=== PATIENT | male | born 1950 | race Caucasian/White ===

== ENCOUNTER → 2018-06-16 08:26 | Day surgery (SDC) | payer BC ==
--- NOTE | 2018-06-03 14:50 | HP ---
PREOPERATIVE HISTORY AND PHYSICAL: DATE OF ADMISSION/SURGERY: 06/16/18 DATE OF OFFICE VISIT: 06/03/18 ATTENDING PHYSICIAN: Dr. Manuel Gallo* (dictated by LEON Hartmann). PROCEDURE: Left shoulder arthroscopy rotator cuff repair, decompression, debridement, and subpectoral biceps tenodesis. CHIEF COMPLAINT: Left shoulder pain. HISTORY OF PRESENT ILLNESS: Miguel Ángel is a 67-year-old male who presents to clinic for left shoulder pain due to rotator cuff tear and biceps tendinitis. He has failed conservative measures; therefore, agreed to undergo a left shoulder arthroscopy rotator cuff repair, decompression, debridement and subpectoral biceps tenodesis with Dr. Gallo on 06/16/18. 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 PAST SURGICAL HISTORY: Hernia repair, colorectal surgery, port placement, endoscopy. The patient denies prior complication with anesthesia. MEDICATIONS: 1. Lovastatin 10 mg 1 by mouth at bedtime. 2. Duloxetine 20 mg 2 capsule every day. 3. Citrucel 1 teaspoon in 8 ounces of water twice a day as needed. 4. Xarelto 20 mg 1 by mouth every day. 5. Altace 2.5 mg 1 cap every day. 6. Meclizine 25 mg 1 every 8 hours for dizziness. 7. Zofran 4 mg 1 tab every 6 hours for nausea. 8. Hydrocodone/acetaminophen 5/325 mg 1 hour every 4 to 6 hours as needed, this was for postop, he is no longer taking it. 9. Omeprazole 20 mg 1 by mouth daily. 10. Multivitamin 1 by mouth daily. 11. Flomax 0.4 mg 1 daily. 12. Gabapentin 300 mg 1 cap in the morning and 2 at bedtime. ALLERGIES: PENICILLIN. FAMILY HISTORY: Unknown because he is adopted. SOCIAL HISTORY: He is a [employer]. He quit smoking 30 or 35 years ago. He reports occasional alcohol consumption. He is right hand dominant. REVIEW OF SYSTEMS: A 14-point review of systems was reviewed with the patient. Positive for current complaints otherwise negative. Positive for DVT and PE. He has easy bleeding due to being on Xarelto. He denies fever, chills, chest pain or shortness of breath. PHYSICAL EXAMINATION GENERAL: A 67-year-old well-developed, well-nourished male in no acute distress. VITAL SIGNS: Height 66, weight 213, pulse 80, blood pressure 116/82, temperature 97.6, BMI 34.5. HEENT: Normocephalic, atraumatic. PERRLA. Throat clear. NECK: Supple. PULMONARY: Lungs clear to auscultation bilaterally. No wheezing, rhonchi, or rales. CARDIO: Regular rate and rhythm. S1 and S2. No murmurs, gallops, or rubs. No edema. ABDOMEN: Positive bowel sounds, soft, nontender. MUSCULOSKELETAL: Left upper extremity: Skin is intact. No warmth or erythema. No abrasions or open wounds. Tenderness over the bicipital groove and subacromial space. He has pain with range of motion. Forward flexion and abduction 150; external rotation 65. +4/5 strength to rotator cuff testing was obtained. Positive impingement, Speed's, Albert-Zeke, and Meldrim's. +2 radial pulses. Sensation is intact to light touch distally. NEURO: Alert and oriented x3. Cranial nerves grossly intact. DIAGNOSTIC STUDIES: MRI revealed no full thickness tear but a partial tear of the supraspinatus tendon, degeneration of superior labrum as well as biceps tendon and fluid in the bicipital groove. IMPRESSION: Left shoulder rotator cuff tear and biceps tendinitis. PLAN: The patient is scheduled to undergo a left shoulder arthroscopy, rotator cuff repair, decompression, and debridement of subpectoral biceps tenodesis with Dr. Gallo on 06/16/18 pending PCP clearance on 06/08/18. His Xarelto will be held preoperatively based on PCP recommendation. Percocet will be used for postop pain management. LEON HARTMANN [id number]/[facility] #: [id number] MTDD
[~2018-06-16 08:26] MED LIST: Buffered Lidocaine 1% SYRIN* 1 ML/SYRINGE INTRADERM ONE; Dexamethasone IV* 4 MG/ML 1 ML (4 MG) ONE; EPHEDrine (Pressors)* 50 MG/ML VIAL ONE; EPINEPHrine SYR 0.1MG/ML* SYRINGE ONE; Lactated Ringers 1000 ML Bag* 1,000 ML IV SCH; Lidocaine 2% PF * 5 ML VIAL ONE; Midazolam* 1 MG/ML 2 ML VIAL (2 MG) ONE; Phenylephrine 10 MG/ML VIAL* 1 ML VIAL ONE; Propofol* 10 MG/ML 20 ML BTL ONE; ROPIVACAINE 5 MG/ML 30 ML BTL (0.5%) ONE; Rocuronium* 10 MG/ML VIAL ONE; Ropivacaine* 2 MG/ML 20 ML VIAL (0.2%) ONE; VASOPRESSIN 20 UNITS/ML 1 ML VIAL ONE; ceFAZolin 2 GM PREMIX in ORs 2 GM/50 ML BAG IVPB ONE; fentaNYL* 50 MCG/ML 2 ML VIAL (100 MCG VIAL) ONE
[2018-06-16 15:29] VITALS: BP 128/70
--- NOTE | 2018-06-16 17:49 | OP ---
CC: PCP* OPERATIVE REPORT: DATE OF OPERATION: 06/16/18 - [facility] DATE OF : 54. SURGEON: Manuel Gallo MD. ASSISTANTS: 1. LEON Cabrales 2. ADONIS Arevalo student. ANESTHESIOLOGIST: Dr. Issa. ANESTHESIA: General interscalene block. PRE-OP DIAGNOSIS: Left shoulder, high-grade bursal side tear of the rotator cuff with biceps tendinitis. POST-OP DIAGNOSIS: Left shoulder, high-grade bursal side tear of the rotator cuff with biceps tendinitis. OPERATIVE PROCEDURE: Left shoulder arthroscopy with: 1. Extensive glenohumeral debridement. 2. Subacromial decompression with acromioplasty. 3. Rotator cuff repair with Regeneten patch. 4. Open biceps tenodesis. IMPLANTS USED: One Regeneten patch size medium and one Q-Fix 2.8 mm. COMPLICATIONS: None. ESTIMATED BLOOD LOSS: Minimal. INDICATIONS: Miguel Ángel Epperson is a 67-year-old male who had a work-related injury. He was diagnosed with a high-grade bursal side tear. He has failed conservative management and elected to proceed with surgical treatment. He underwent preoperative medical risk optimization per his complicated medical history and was cleared for surgery. The risks and benefits of surgery were discussed at length including, but not limited to bleeding; infection; damage to nerves, vessels, surrounding structures; wound nonhealing; persistent pain; need for further surgery; scarring; stiffness; incomplete relief of symptoms; risks of anesthesia. DESCRIPTION OF PROCEDURE: The patient was greeted in the preoperative area by the attending surgeon. Correct extremity was marked and consent was confirmed. The patient underwent an interscalene nerve block after which he was brought back to the operating suite, and placed in the supine position on the operating table. He then underwent general anesthesia and endotracheal intubation. After he was properly positioned in the right lateral decubitus position, all bony prominences were padded and secured to the pegboard, an axillary roll was placed, the left arm was draped unsterile with 10 pounds of traction. The left shoulder was prepped and draped in the usual sterile fashion, beginning with chlorhexidine soap, scrub, and alcohol wipe and final prep of ChloraPrep. After appropriate surgical pause indicating the side, site, procedure, and administration of antibiotics, a standard posterolateral portal was made sharply with an 11 blade. The scope was introduced into the joint and was examined. There was mild glenohumeral chondral changes grade 1, small areas of grade 2. The anterior, posterior, and superior labrum had osteal fraying. The biceps was obviously subluxed with synovitis. The anterior portal was made in an outside-in fashion. Shaver was used to debride back the anterior, posterior , and superior labrum doing a mild chondroplasty. Biceps was then tenotomized for later tenodesis as there was high-grade bursal side tear of the undersurface of the rotator cuff. The inferior recess was intact. Once the debridement was completed, attention was directed to the subacromial space. With the scope positioned in the subacromial space, a lateral portal was made in outside-in fashion. Shaver was used to debride back the abundant significant bursa that was present. Once this was done, the undersurface of the acromion was skeletonized using electrocautery device. A 4-0 oval idalia was used for acromioplasty. Once this was complete, attention was directed to the cuff. Once all were derided and fluid was removed, the attention was directed to the cuff. The bursal side of the cuff was found to be intact. Decision was made to treat this with a Regeneten patch. A size medium Regeneten patch was then brought to the field and through a separate stab incision, the cannula was placed to facilitate passage of the medial tendon zheng. These were then secured medially along the affected areas of the supraspinatus tendon. Once this was secured, the lateral aspect was then secured with PEEK zheng to the bone. The graft was secured. The final images were obtained. The wounds were copiously irrigated. Attention was directed to the anterior aspect of the shoulder. The bed was airplaned to the left side. The anterior aspect of the shoulder was prepped again using ChloraPrep. A 15-blade was used to make incision in line with the biceps tendon. The soft tissues were carefully dissected to expose the fascia. Once this was identified, the pec was elevated and the remainder of the dissection was done bluntly. The groove was then prepared in the usual fashion with electrocautery device, red ball rasp, and osteotome. Once the biceps was brought through the wound, the Q-Fix guide was then drilled and placed unicortically with excellent purchase. The sutures were then passed through biceps in a Patrick-Fito type configuration and tied down. The excess stump was excised. Biceps was secured. The wounds were copiously irrigated with sterile saline. The anterior wound was closed in layers with 3-0 Monocryl and portals were closed with 3-0 nylon. Sterile dressings were applied. A Cryo /Cuff and UltraSling were applied. He was awoken from anesthesia and transferred to PACU in stable condition. POSTOPERATIVE PLAN: He will be nonweightbearing. He will be discharged on pain medications. DVT prophylaxis was considered. He will be on Xarelto for other reasons, which would cover his DVT prophylaxis. I will see her back in 10 to 14 days. He will start therapy within a week. He will also be discharged on the antibiotics. We will see the patient back in 10 to 14 days. [id number]/[facility] #: [id number] MTDD
== END | disposition home or self-care (01) ==
LOC: OR 08:26
PROVIDERS: ATTEND Orthopaedic Surgery
DX: S46.012A Strain of muscle(s) and tendon(s) of the rotator cuff of left shoulder, initial encounter (principal); M75.22 Bicipital tendinitis, left shoulder; G89.18 Other acute postprocedural pain; I10 Essential (primary) hypertension; Z86.718 Personal history of other venous thrombosis and embolism; Z79.01 Long term (current) use of anticoagulants; Z86.711 Personal history of pulmonary embolism; E11.9 Type 2 diabetes mellitus without complications; E78.5 Hyperlipidemia, unspecified; K21.9 Gastro-esophageal reflux disease without esophagitis; Z85.038 Personal history of other malignant neoplasm of large intestine; X58.XXXA Exposure to other specified factors, initial encounter; Y92.9 Unspecified place or not applicable; Y99.0 Civilian activity done for income or pay; Z87.891 Personal history of nicotine dependence; G62.0 Drug-induced polyneuropathy
CPT/HCPCS: C1713; C1776; J0171; J0690; J1100; J2250; J2704; J2795; J3010

== ENCOUNTER → 2019-01-12 12:16 | Day surgery (SDC) | payer OTHER ==
[~2019-01-12 12:16] MED LIST changes: +Acetaminophen IV 1GM/100ML * 100 ML ONE; +Dexmedetomidine* 200 MCG/2 ML 2 ML VIAL ONE; +DiMENhydriNATE IV* 50 MG/ML VIAL IV PUSH PRN; +Ketorolac INJ* 30 MG/ML 1 ML VIAL ONE; +Metoclopramide IV* 5 MG/ML 2 ML VIAL ONE; +Naloxone* 0.4 MG/ML 1 ML VIAL IV PRN; +Ondansetron INJ* 2 MG/ML VIAL ONE; -Phenylephrine 10 MG/ML VIAL* 1 ML VIAL ONE; -Ropivacaine* 2 MG/ML 20 ML VIAL (0.2%) ONE; +Sugammadex * 200 MG/2 ML VIAL IV PUSH ONE; -VASOPRESSIN 20 UNITS/ML 1 ML VIAL ONE; -ceFAZolin 2 GM PREMIX in ORs 2 GM/50 ML BAG IVPB ONE; +ceFAZolin 2 GM PREMIX in ORs 2 GM/50 ML BAG ONE; +fentaNYL* 50 MCG/ML 2 ML VIAL (100 MCG VIAL) IV PRN; +oxyCODONE TAB* 5 MG TAB PO PRN
[2019-01-12 20:01] VITALS: BP 117/60
--- NOTE | 2019-01-14 14:33 | OP ---
CC: PCP * DATE OF OPERATION: 01/12/19 - [facility] DATE OF : 54 ATTENDING SURGEON: Manuel Gallo MD. SECRETARIAL TEACHER: Juju Pierce PA-C. An warehouse administrative assistant was needed for the entirety of the case to help with positioning and retraction and was utilized throughout all portions of the case. ANESTHESIOLOGIST: Dr. Issa. ANESTHESIA: General interscalene block. PRE-OP DIAGNOSES: Left shoulder full-thickness tear of the rotator cuff and acromioclavicular joint arthritis. POST-OP DIAGNOSES: Left shoulder full-thickness tear of the rotator cuff and acromioclavicular joint arthritis. OPERATIVE PROCEDURE: Left shoulder revision arthroscopy with: 1. Extensive glenohumeral debridement. 2. Revision subacromial decompression. 3. Arthroscopic distal clavicle excision. 4. Rotator cuff repair in a double-row fashion augmented with Regeneten patch. 5. Removal of hardware. COMPLICATIONS: None. ESTIMATED BLOOD LOSS: Minimal. IMPLANTS: One MULTIFIX, one Healicoil, one medium-sized Regeneten patch. DISPOSITION: Stable. INDICATIONS: Miguel Ángel Epperson is a 68-year-old male who had a previous surgery for a partial-thickness tear. We did a Regeneten patch. He seemed to be doing okay, but he started to present with some AC joint symptoms. We did inject it, but he started to have more laterally based symptoms. We did an MRI, which demonstrated that he had actually torn his rotator cuff, which was surprising. After extensive discussion of the risks and benefits, operative versus nonoperative treatment, he elected to proceed with surgical treatment. The risks included, but were not limited to bleeding, infection, damage to nerves; vessels; surrounding structures, wound nonhealing, persistent pain, need for further surgery, scarring, stiffness, incomplete relief of symptoms, and risks of anesthesia. The patient underwent preoperative medical risk optimization prior to surgery. DESCRIPTION OF PROCEDURE: The patient was greeted in the preoperative area by the attending surgeon. Correct extremity was marked and consent was confirmed. The patient underwent an interscalene nerve block by the anesthesiologist, after which he was brought back to the operating suite. He was placed in the supine position on the operating room table. He then underwent general anesthesia and endotracheal intubation, after which he was placed in the right lateral decubitus position with an axillary roll. All bony prominences were padded and secured to the pegboard. The left shoulder was draped unsterile with 10 pounds of traction. The left shoulder was then prepped and draped in the usual sterile fashion, beginning with chlorhexidine soap, scrub, and alcohol wipe and final prep of ChloraPrep. After appropriate surgical pause indicating the side, site, procedure, and administration of antibiotics, the standard posterolateral portal was made sharply with an 11 blade. The scope was introduced into the joint. There was abundant scar tissue that I had to get through. The anterior portal was made in an outside- in fashion. There was a mild amount of chondrosis in the glenohumeral joint which was debrided back. The anterior, posterior and superior labrum was debrided back. The undersurface of the rotator cuff had evidence of synovitis and tearing. The subscapularis was intact. The inferior recess was intact. Attention was directed to the subacromial space. With the scope positioned in the subacromial space, a lateral portal was made in an outside-in fashion. Shaver was used to debride back the abundant bursa that was present. The previously placed patch had been reabsorbed to a good extent, but there were the PEEK zheng that were identified. These needed to be removed in order to perform the repair, which he had a small full-thickness tear. Both zheng were removed in their entirety. The undersurface of the acromion was then skeletonized again and a small revision acromioplasty was done to access the AC joint. Once the AC joint was identified, attention was directed to distal clavicle excision. With the bur in the anterior portal, the distal 8 mm of the clavicle were then excised using a 4-0 oval bur. Once this was excised and the clavicle was checked for motion with no evidence of impingement, attention was directed to the rotator cuff. The cuff was examined again. There was a small full-thickness tear. There were some areas which looked like it was a partial tear. This was completed with the 11- blade. The edges of the tendon were debrided back. The electrocautery device was used to skeletonize the greater tuberosity. The 4-0 oval bur was then used to gently decorticate the greater tuberosity. One 4.75 Healicoil was placed medially about the footprint and then a small microfracture was done. The anchor was placed with excellent purchase. The tape and Ortho Braid sutures were then passed in a horizontal mattress configuration and then tied down using arthroscopic knot-tying technique. The remaining sutures were then passed through a MULTIFIX anchor for lateral row fixation. Because the patient is young and this is a revision surgery, we decided to proceed with Regeneten patch as well. The Regeneten patch of a size medium was placed under arthroscopic and direct visualization and it was then secured medially as well as laterally. Final images were obtained. The wounds were copiously irrigated with sterile saline. The portals were closed with 3-0 nylon. Sterile dressings were applied. A Cryo/Cuff and UltraSling were applied. He was awoken from anesthesia and transferred to PACU in stable condition. POSTOPERATIVE PLAN: He will be nonweightbearing. He will be in the sling for 6 weeks. He will be discharged on pain medications and antibiotics due to revision surgery. He will restart his Xarelto on postop day #1. I will see the patient back in 10 to 14 days. [id number]/[facility] #: [id number] [facility]
== END | disposition home or self-care (01) ==
LOC: OR 12:16
PROVIDERS: ATTEND Orthopaedic Surgery
DX: S46.012D Strain of muscle(s) and tendon(s) of the rotator cuff of left shoulder, subsequent encounter (principal); M19.012 Primary osteoarthritis, left shoulder; I10 Essential (primary) hypertension; E11.9 Type 2 diabetes mellitus without complications; Z86.718 Personal history of other venous thrombosis and embolism; Z79.01 Long term (current) use of anticoagulants; Z86.711 Personal history of pulmonary embolism; Z87.891 Personal history of nicotine dependence; X58.XXXD Exposure to other specified factors, subsequent encounter; Y92.9 Unspecified place or not applicable; G89.18 Other acute postprocedural pain; I89.0 Lymphedema, not elsewhere classified
CPT/HCPCS: C1713; J0171; J0690; J1100; J1885; J2250; J2405; J2704; J2765; J2795; J3010

== ENCOUNTER 2019-04-01 14:22 | Inpatient (IN) | payer BC, OTHER ==
--- OUTSIDE RECORDS SUMMARY | 2019-04-01 15:19 | XMS REPORT | Continuity of Care Document ---
:1950 External Reference #:[id number] Author Name Gordy Wills M.D. (transmitted by agent of provider Albina Fernandez ) Address [address] [facility], [place] [address] Care Team Providers Name Role Phone Yusuf Elizalde MD - Care Team Information Appliance Service Representative [phone] Otolaryngology Paola Orozco NP - Diabetes Care Team Information Appliance Service Representative [phone] Educator Benja Mcgraw III, MD - Internal Care Team Information Appliance Service Representative Medicine Guero Castro DPM - Foot Surgery Care Team Information Appliance Service Representative Gordy Wills M.D. - Neurology Care Team Information Appliance Service Representative Problems Active Problems Provider Date Adenocarcinoma of large intestine Jakob Carter M.D.,FACP Onset: 2015 Peripheral vertigo Jakob Carter M.D.,FACP Onset: 08/12/2011 Type 2 diabetes mellitus without Jakob Carter M.D.,FACP Onset: 2014 complication Cholelithiasis without obstruction Jakob Carter M.D.,FACP Onset: 2014 Kidney stone Jakob Carter M.D.,FACP Onset: 10/13/2014 H/O: pulmonary embolus Jakob Carter M.D.,FACP Onset: 12/19/2015 Strain of muscle(s) and tendon(s) of Manuel Gallo MD Onset: 07/24/2017 the rotator cuff of left shoulder, subsequent encounter Cervical spondylosis without Juan Jose Haro M.D. Onset: 12/14/2017 myelopathy Olecranon bursitis Manuel Gallo MD Onset: 02/23/2018 Localized, secondary osteoarthritis of Manuel Gallo MD Onset: 10/19/2018 the shoulder region Loose body in elbow joint Manuel Gallo MD Onset: 10/19/2018 Pure hypercholesterolemia Benja Mcgraw M.D. Onset: 11/15/2018 Benign prostatic hypertrophy without Benja Mcgraw M.D. Onset: 11/15/2018 outflow obstruction Strain of rotator cuff capsule Benja Mcgraw M.D. Onset: 12/22/2018 Localized, primary osteoarthritis of Manuel Gallo MD Onset: 02/22/2019 the shoulder region Abnormal involuntary movement Gordy Wills M.D. Onset: 03/29/2019 Malaise and fatigue Gordy Wills M.D. Onset: 03/29/2019 Social History Type Date Description Comments Sex Unknown Tobacco Use Start: Unknown Former Cigarette Smoker Quit 1979 End: Unknown Smoking Status Reviewed: 03/29/19 Former Cigarette Smoker Quit 1979 ETOH Use Occasionally consumes occasional beer with alcohol dinner Tobacco Use Start: Unknown Patient is a former Quit 1979; max End: Unknown smoker 1-2ppd, began age 18 Recreational Drug Use Denies Drug Use Exercise Type/Frequency Exercises rarely due to shoulder surgery, not able to walk as much Allergies, Adverse Reactions, Alerts Active Allergies Reaction Severity Comments Date Penicillins Nausea and Vomiting, Cramps 08/12/2011 Medications Active Medications SIG Qnty Indications Ordering Date Provider Zolpidem Tartrate 1-2 at bedtime as 10tabs Benja Jensen 01/25/2019 5mg needed Gregorio Mcgraw Tablets Lovastatin Take 1 Tablet AT 90tabs E11.9 Benja Jensen 05/13/2017 10mg Bedtime Gregorio Mcgraw Tablets Duloxetine HCL take 2 capsules 180caps Benja Jensen 12/22/2016 20mg by mouth every Gregorio Mcgraw Caps DR Prashant land. Citrucel 1 Tbsp in 8 oz. 454gm Jakob Naylor 04/17/2016 Powder water by mouth Gregorio Carter,FACP twice a day as needed Xarelto take 1 tablet by 90tabs Benja Jensen 04/17/2016 20mg Tablets mouth every day. Gregorio Mcgraw Altace take 1 capsule by 90caps E11.9 Benja Jensen 12/13/2014 2.5mg Capsules mouth every day Gregorio Mcgraw Meclizine HCL 1 po q8hr prn for 30tabs Jakob Naylor 08/12/2011 25mg dizziness or Gregorio Carter,FACP Tablets motion sickness Ondansetron Odt dissolve 1 tablet 20tabs Jakob Naylor 08/12/2011 4mg q6-8hr prn nausea Gregorio Carter,FACP Tablets Dispers Onetouch Delica test twice a day 150units Jakob Naylor Lancets Fine 30G Gregorio Carter,FACP 30G Misc Onetouch Ultra Blue test twice a day 150units Jakob Naylor Gregorio Carter,FACP Strips Multivitamin Adult 1 by mouth every Unknown day Tablets Flomax 1 by mouth every Unknown 0.4mg Capsules day History Medications Oxycodone-Acetaminophen 1 tabs by mouth 30tabs Manuel Gallo, 01/12/2019 - 5-325mg Tablets every 4-6 hours as 02/21/2019 needed for post op pain Cephalexin take 1 by mouth 12caps Manuel Gallo 01/12/2019 - 500mg Capsules four times a day x 01/22/2019 3 days post op Suprep Bowel Prep Kit take according to 354ml Daniel Riojas 12/01/2018 - the instructions MD Michael 01/09/2019 17.5-3.13-1.6GM/177ML you received, the Solution afternoon before and morning of your procedure. Medications Administered in Office Medication SIG Qnty Indications Ordering Provider Date Triamcinolone (Kenalog) Manuel Gallo MD 10/19/2018 Injection Records Fee Manuel Gallo MD 10/08/2018 Injection Triamcinolone (Kenalog) Manuel Gallo MD 07/24/2017 Injection Immunizations CPT Code Status Date Vaccine Lot # [id number] Given 12/14/2017 Tdap - Tetanus/Diptheria/Acellular Pertussis [id number] Given 11/13/2017 Pneumococcal Conjugate Vaccine 13 Valent For [id number] Intramuscular Use [id number] Given 06/13/2015 Zoster (Zostavax) [id number] Given 12/13/2014 Pneumonia Vaccine [id number] Refused 12/19/2015 Influ Virus Vaccine, Quadrivalent, Split Virus, Im Fluzone not PF Vital Signs Date Vital Result Comment 03/29/2019 11:10am Height 66 inches 5'6" Weight 217.00 lb Heart Rate 110 /min BP Systolic 120 mmHg BP Diastolic 70 mmHg BMI (Body Mass Index) 35.0 kg/m2 03/24/2019 9:07am Height 66 inches 5'6" Weight 216.00 lb Heart Rate 100 /min BP Systolic 138 mmHg BP Diastolic 72 mmHg Respiratory Rate 18 /min Pain Level 2 BMI (Body Mass Index) 34.9 kg/m2 Results Test Acquired Date Facility Test Result H/L Range Note Laboratory test 01/12/2019 [facility] Point of Care 114 mg/dL High 70-100 [address] [place] [address] [phone] Surgical 01/04/2019 [facility] Surgical SEE RESULT [address] [address] [phone] PDFReport SEE IMAGE CBC Auto 01/03/2019 [facility] White Blood 6.1 10^3/uL Normal 3.5-10.[address] [place] [address] [phone] Red Blood Count 4.86 10^6/uL Normal 4.18-5.48 Hemoglobin 17.5 g/dL Normal 14.0-18.0 Hematocrit 50 % Normal 42-52 Mean Corpuscular Volume 102 fL High 80-94 Mean Corpuscular Hemoglobin 36 pg High 27-31 Mean Corpuscular HGB Conc 35 g/dL Normal 31-36 Red Cell Distribution Width 13 % Normal 10-15 Platelet Count 193 10^3/uL Normal 150-450 Mean Platelet Volume 7.1 fL Low 7.4-10.4 Abs Neutrophils 4.0 10^3/uL Normal 1.5-7.7 Abs Lymphocytes 1.3 10^3/uL Normal 1.0-4.8 Abs Monocytes 0.7 10^3/uL Normal 0-0.8 Abs Eosinophils 0.1 10^3/uL Normal 0-0.6 Abs Basophils 0.0 10^3/uL Normal 0-0.2 Abs Nucleated RBC 0.0 10^3/uL Granulocyte % 64.8 % Lymphocyte % 21.0 % Monocyte % 11.1 % Eosinophil % 2.3 % Basophil % 0.8 % Nucleated Red Blood Cells % 0.1 Comp Metabolic 01/03/2019 [facility] Sodium 138 mmol/L Normal 135-[address] [place] [address] [phone] Potassium 4.3 mmol/L Normal 3.5-5.0 Chloride 103 mmol/L Normal 101-111 Co2 Carbon Dioxide 28 mmol/L Normal 22-32 Anion Gap 7 mmol/L Normal 2-11 Calcium 9.7 mg/dL Normal 8.6-10.3 Albumin 4.6 g/dL Normal 3.2-5.2 Total Bilirubin 1.20 mg/dL High 0.2-1.0 Glucose 138 mg/dL High 70-100 Blood Urea Nitrogen 25 mg/dL High 6-24 Creatinine 1.03 mg/dL Normal 0.67-1.17 BUN/Creatinine Ratio 24.3 High 8-20 Total Protein 7.4 g/dL Normal 6.4-8.9 Globulin 2.8 g/dL Normal 2-4 Albumin/Globulin Ratio 1.6 Normal 1-3 Alkaline Phosphatase 69 U/L Normal 34-104 Alt 21 U/L Normal 7-52 Ast 17 U/L Normal 13-39 Egfr Non- 72.3 >60 Egfr 87.4 >60 3 Laboratory 01/03/2019 [facility] Carcinoembryonic 1.5 Normal 0.1-5.0 4 test finding [address] Antigen Cea ng/[place] [address] [phone] Lipid Profile 11/10/2018 [facility] Triglycerides 131 5, (Trig/Chol/HD [address] mg/dL 6 L) [place] [address] [phone] Cholesterol 162 mg/dL 7 HDL Cholesterol 46.0 mg/dL 8 LDL Cholesterol 90 mg/dL 9 Laboratory test 11/10/2018 [facility] Hemoglobin A1c 6.7 % High 4.0-5.6 [address] (Glyco HGB) [place] [address] [phone] Laboratory test 11/10/2018 [facility] PSA Screening 1.025 0- 4.0 [address] ng/[place] [address] [phone] 1 Electro Mechanic: [id number] 2 SEE RESULT BELOW Name: MIGUEL ÁNGEL EPPERSON NADYA : [address]: Daniel Rodriguez MD Acct: [id number] Unit: [id number] AGE: 68 Location: ENDO Re01/04/19 SEX: M Status: DEP REF SPEC: [id number] MAY: 01/04/19- [facility] DR: Daniel Rodriguez MD REQ: [id number] RECD: 01/04/19 STATUS: KATELIN BISHOP DR: Benja Mcgraw III, MD _ ORDERED: LEVEL 4 FINAL DIAGNOSIS Colon, rectum at 5 cm, biopsy: -- Tubular adenoma. -- No high grade dysplasia or malignancy. CLINICAL HISTORY Screening/Surveillance for malignancy in asymptomatic patient POST-OPERATIVE DIAGNOSIS Colonoscopy: very poor prep; base of cecum not seen; conclusions: status post resection; poor prep; distal rectal polyp GROSS DESCRIPTION The specimen is received in formalin labeled, Rectal Polyp at 5 cm, and consists of a 0.5 x 0.3 x 0.3 cm shea-pink polypoid soft tissue fragment, which is inked, bisected and submitted entirely in one cassette. Signed by and Reported on: Pineda Garay MD [address] END OF REPORT DEPARTMENT OF PATHOLOGY, [address] [place] [address] Pineda Garay M.D. Director [facility] # [id number] 3 Because ethnic data is not always readily available, this report includes an eGFR for both -Americans and non- Americans. The National Kidney Disease Education Program (NKDEP) does not endorse the use of the MDRD equation for patients that are not between the ages of 18 and 70, are , have extremes of body size, muscle mass, or nutritional status, or are non- or non-. According to the National Kidney Foundation, irrespective of diagnosis, the stage of the disease is based on the level of kidney function: Stage Description GFR(mL/min/1.73 m(2)) 1 Kidney damage with normal or decreased GFR 90 2 Kidney damage with mild decrease in GFR 60-89 3 Moderate decrease in GFR 30-59 4 Severe decrease in GFR 15-29 5 Kidney failure <15 (or dialysis) 4 Nonsmokers: < 2.9 ng/mL Some smokers may have elevated CEA, usually <5.0 ng/mL. Serum markers are not specific for malignancy, and values may vary by method. The testing method is an immunoenzymatic assay air brake adjuster by [employer] performed on [employer] DXI 600. Do not interpret serum CEA levels as absolute evidence of the presence or the absence of malignant disease. Use serum CEA in conjunction with information from the clinical evaluation of the patient and other diagnostic procedures. 5 FASTING 6 Desirable: <150 Borderline High: 150-199 High: 200-499 Very High: >500 7 Desirable: <200 Borderline High: 200-239 High: >239 8 Low: <40 Desirable: 40-60 High: >60 9 Desirable: <100 Near Optimal: 100-129 Borderline High: 130-159 High: 160-189 Very High: >189 10 Therapeutic target for the treatment of diabetes mellitus patients is <7% HBA1C, and in selective patients <6.0%. Please refer to [place] Diabetes Association diabetic care guidelines for further information. 11 Serum levels of PSA measured using the [employer] DXI Hybritech immunoassay should not be interpreted as absolute evidence of the presence or absence of disease. The PSA value should be used in conjunction with other pertinent clinical diagnostic procedures. The values obtained with different assay methods or kits cannot be used interchangeably. Procedures Date Code Description Status 01/12/2019 91463 Arthroscopy Shoulder,W/Rotator Cuff Repair Completed 01/12/2019 07331 Arthroscopy Shoulder,W/Rotator Cuff Repair Completed 01/12/2019 97777 Arthroscopy Shoulder,W/Rotator Cuff Repair Completed 01/12/2019 20698 Arthroscopy,Shoulder,Distal Claviculectomy Incl Dist Completed Articular SR 01/12/2019 60880 Arthroscopy,Shoulder,Distal Claviculectomy Incl Dist Completed Articular SR 01/12/2019 46290 Arthroscopy,Shoulder,Distal Claviculectomy Incl Dist Completed Articular SR 01/04/2019 64974 Colonoscopy Flexible Remove Tumor/Polyp/Lesion Snare Completed Technique 10/19/2018 66726 Inj/Aspir, Intermediate Joint/Bursa W/ US Completed 02/21/2017 655146409 Diabetic Retinal Eye Exam Completed 11/20/2016 [id number] Colonoscopy Completed 05/11/2015 11575190 Colonoscopy Completed 10/21/2014 616079884 Diabetic Retinal Eye Exam Completed Medical Devices Description No Information Available Encounters Type Date Location Provider Dx Diagnosis Office Visit 03/29/2019 [facility] Gordy Wills, R25.1 Tremor, 11:15a [facility] unspecified R53.83 Other fatigue Office Visit 12/22/2018 2:20p [facility] Benja Jensen Z01.818 Encounter for other Medicine - Gregorio Mcgraw preprocedural Ccmob examination S46.012A Strain of musc/tend the rotator cuff of left shoulder, init E11.9 Type 2 diabetes mellitus without complications I10 Essential (primary) hypertension E78.00 Pure hypercholesterolemia, unspecified N40.0 Benign prostatic hyperplasia without lower urinry tract symp 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 E11.40 Type 2 diabetes Tri Mcgraw M.D. 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 03/29/2019 R53.83 Other fatigue Gordy Wills M.D. 03/24/2019 S46.012D Strain of muscle(s) and tendon(s) of the Manuel Gallo MD rotator cuff of left shoulder, subsequent encounter 03/24/2019 S50.02xD Contusion of left elbow, subsequent Manuel Gallo MD encounter 03/24/2019 S46.012D Strain of muscle(s) and tendon(s) of the Manuel Gallo MD rotator cuff of left shoulder, subsequent encounter 02/22/2019 S46.012D Strain of muscle(s) and tendon(s) of the Manuel Gallo MD rotator cuff of left shoulder, subsequent encounter 02/22/2019 S50.02xA Contusion of left elbow, initial Manuel Gallo MD encounter 02/22/2019 M19.012 Primary osteoarthritis, left shoulder Manuel Gallo MD 01/27/2019 S46.012D Strain of muscle(s) and tendon(s) of the Manuel Gallo MD rotator cuff of left shoulder, subsequent encounter 01/27/2019 M19.011 Primary osteoarthritis, right shoulder Manuel Gallo MD 01/27/2019 S46.012A Strain of muscle(s) and tendon(s) of the Manuel Gallo MD rotator cuff of left shoulder, initial encounter 01/12/2019 S46.012A Strain of muscle(s) and tendon(s) of the Juju Pierce PA-C rotator cuff of left shoulder, initial encounter 01/12/2019 S46.012A Strain of muscle(s) and tendon(s) of the Juju Pierce PA-C rotator cuff of left shoulder, initial encounter 01/12/2019 M19.012 Primary osteoarthritis, left shoulder Juju Pierce PA-C 01/12/2019 M19.012 Primary osteoarthritis, left shoulder Juju Pierce PA-C 01/12/2019 S46.012A Strain of muscle(s) and tendon(s) of the Manuel Gallo MD rotator cuff of left shoulder, initial encounter 01/12/2019 M19.012 Primary osteoarthritis, left shoulder Manuel Gallo MD 01/04/2019 Z12.11 Encounter for screening for malignant Daniel Rodriguez MD neoplasm of colon 01/04/2019 D12.8 Benign neoplasm of rectum Daniel Rodriguez MD 12/31/2018 S46.012D Strain of muscle(s) and tendon(s) of the Manuel Gallo MD rotator cuff of left shoulder, subsequent encounter 12/22/2018 Z01.818 Encounter for other preprocedural Benja Mcgraw M.D. examination 12/22/2018 S46.012A Strain of muscle(s) and tendon(s) of the Benja Mcgraw M.D. rotator cuff of left shoulder, initial encounter 12/22/2018 E11.9 Type 2 diabetes mellitus without Benja Mcgraw M.D. complications 12/22/2018 I10 Essential (primary) hypertension Benja Mcgraw M.D. 12/22/2018 E78.00 Pure hypercholesterolemia, unspecified Benja Mcgraw M.D. 12/22/2018 N40.0 Benign prostatic hyperplasia without Benja Mcgrwa M.D. lower urinary tract sym 12/22/2018 Z79.01 [facility] (current) use of anticoagulants Benja Mcgraw M.D. 12/22/2018 M25.512 Pain in left shoulder Benja Mcgraw M.D. 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 neuropathy, unspecified 11/15/2018 E78.00 Pure hypercholesterolemia, unspecified Benja Mcgraw M.D. 11/15/2018 N40.0 Benign prostatic hyperplasia without Benja Mcgraw M.D. lower urinary tract sym 11/15/2018 C20 Malignant neoplasm of rectum Benja Mcgraw M.D. 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 unspecified veins of righ 11/15/2018 R25.1 Tremor, unspecified Benja Mcgraw M.D. 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, left shoulder Manuel Gallo MD 10/19/2018 M24.022 Loose body in left elbow Manuel Gallo MD 10/19/2018 M70.22 Olecranon bursitis, left elbow Manuel Gallo MD 10/08/2018 S46.012A Strain of muscle(s) and tendon(s) of the Manuel Gallo MD rotator cuff of left shoulder, initial encounter 10/08/2018 S46.012D Strain of muscle(s) and tendon(s) of the Manuel Gallo MD rotator cuff of left shoulder, subsequent encounter 10/08/2018 S50.02xA Contusion of left elbow, initial Manuel Gallo MD encounter 10/08/2018 S50.02xD Contusion of left elbow, subsequent Manuel Gallo MD encounter Plan of Treatment Future Appointment(s):08/08/2019 4:00 pm - Gordy Wills M.D. at [facility]05/10/2019 10:30 am - Elie Hernandez MD at [facility] at [id number]/17/2019 10:20 am - Benja Mcgraw M.D. at [facility] - [facility]03/29/2019 - Gordy Wills M.D.R25.1 Tremor, unspecifiedNew Xrays:MRI Brain W/O, Ordered: 03/29/19Follow up:Follow up in 4 monthsRecommendations:Call me 1 week after the MRI to review the jegjmabY72.83 Other fatigue Functional Status Description No Information Available Mental Status Description No Information Available Referrals Refer to Dr Reason for Referral Status Appt Date Gordy Wills M.D. newly noted head and hand tremor sx Sent 03/25/2019 [address] [place] [address] [place] [address] [phone]
--- OUTSIDE RECORDS SUMMARY | 2019-04-01 15:19 | XMS REPORT | Continuity of Care Document ---
:1950 External Reference #:[id number] Author Name Manuel Gallo MD (transmitted by agent of provider Montse Pitts) Address [address] [place] [address], [place] [address] Care Team Providers Name Role Phone Yusuf Elizalde MD - Care Team Information Net Mender [phone] Otolaryngology Paola Orozco NP - Diabetes Care Team Information Net Mender Educator Benja Mcgraw III, MD - Internal Care Team Information Net Mender [phone] Medicine Guero Castro DPM - Foot Surgery Care Team Information Net Mender Gordy Wills M.D. - Neurology Care Team Information Net Mender Problems Active Problems Provider Date Adenocarcinoma of large intestine Jakob Carter, Onset: 05/16/2015 Gregorio,FACP Peripheral vertigo Jakob Carter, Onset: 08/12/2011 Gregorio,FACP Type 2 diabetes mellitus without Jakob Carter, Onset: 10/13/2014 complication Gregorio,FACP Cholelithiasis without obstruction Jakob Carter, Onset: 10/13/2014 Gregorio,FACP Kidney stone Jakob Carter, Onset: 10/13/2014 Gregorio,FACP H/O: pulmonary embolus Jakob Carter, Onset: 12/19/2015 Gregorio,FACP Strain of muscle(s) and tendon(s) of the Manuel Gallo MD Onset: 07/24/2017 rotator cuff of left shoulder, subsequent encounter Cervical spondylosis without myelopathy Juan Jose Haro M.D. Onset: 12/14/2017 Olecranon bursitis Manuel Gallo MD Onset: 02/23/2018 Localized, secondary osteoarthritis of Manuel Gallo MD Onset: 10/19/2018 the shoulder region Loose body in elbow joint Manuel Gallo MD Onset: 10/19/2018 Pure hypercholesterolemia Benja Mcgraw M.D. Onset: 11/15/2018 Benign prostatic hypertrophy without Benja Mcgraw M.D. Onset: 11/15/2018 outflow obstruction Strain of rotator cuff capsule Benja Mcgraw M.D. Onset: 12/22/2018 Social History Type Date Description Comments Sex Unknown Tobacco Use Start: Unknown Former Cigarette Smoker Quit 1979 End: Unknown Smoking Status Reviewed: 02/22/19 Former Cigarette Smoker Quit 1979 ETOH Use [...] Jensen 01/25/2019 5mg needed Gregorio Mcgraw Tablets Cephalexin take 1 by mouth 12caps Manuel Gallo MD 01/12/2019 500mg four times a day Capsules x 3 days post op Lovastatin Take 1 Tablet AT 90tabs E11.9 Benja Jensen 05/13/2017 10mg Bedtime Gregorio Mcgraw Tablets Duloxetine HCL take 2 capsules 180caps Benja Jensen 12/22/2016 20mg by mouth every Gregorio Mcgraw Caps DR Cerda . Citrucel 1 Tbsp in 8 oz. 454gm Jakob Naylor 04/17/2016 Powder water by mouth Gregorio Carter,FACP twice a day as needed Xarelto take 1 tablet by 90tabs Benja Jensen 04/17/2016 20mg Tablets mouth every day. Gregorio Mcgraw Altace take 1 capsule by 90caps E11.9 Benja Jensen 12/13/2014 2.5mg Capsules mouth every day Gregorio Mcgraw Ondansetron Odt dissolve 1 tablet 20tabs Jakob Naylor 08/12/2011 4mg q6-8hr prn nausea Gregorio Carter,FACP Tablets Dispers Meclizine HCL 1 po q8hr prn for 30tabs Jakob Naylor 08/12/2011 25mg dizziness or Gregorio Carter,FACP Tablets motion sickness Onetouch Delica test twice a day 150units Jakob Naylor Lancets Fine 30G Gregorio Carter,FACP 30G Misc Onetouch Ultra Blue test twice a day 150units Jakob Naylor Gregorio Carter,FACP Strips Omeprazole take 1 capsule by 90caps Benja Jensen 20mg mouth every other Gregorio Mcgraw Capsules DR day Multivitamin Adult 1 by mouth every Unknown day Tablets Flomax 1 by mouth every Unknown 0.4mg Capsules day Gabapentin take 1 capsule in 270caps Benja Jensen 300mg the morning & 2 Gregorio Mcgraw Capsules capsules at bedtime History Medications Oxycodone-Acetaminophen 1 tabs by mouth 30tabs Manuel Gallo, 01/12/2019 - 5-325mg Tablets every 4-6 hours as 02/21/2019 needed for post op pain Suprep Bowel Prep Kit take according to [...] CPT Code Status Date Vaccine Lot # [id number] Given 12/14/2017 Tdap - Tetanus/Diptheria/Acellular Pertussis [id number] Given 11/13/2017 Pneumococcal Conjugate Vaccine 13 Valent For [id number] Intramuscular Use 04656 Given 06/13/2015 Zoster (Zostavax) [id number] Given 12/13/2014 Pneumonia Vaccine [id number] Refused 12/19/2015 Influ Virus Vaccine, Quadrivalent, Split Virus, Im Fluzone not PF Vital Signs Date Vital Result Comment 02/22/2019 2:02pm Height 66 inches 5'6" Weight 216.00 lb Heart Rate 84 /min BP Systolic 160 mmHg BP Diastolic 88 mmHg Respiratory Rate 18 /min Pain Level 7 BMI (Body Mass Index) 34.9 kg/m2 01/27/2019 11:31am Height 66 inches 5'6" Weight 216.00 lb Heart Rate 88 /min Respiratory Rate 22 /min Body Temperature 96.0 F Pain Level 0 5 with minimal activity O2 % BldC Oximetry 96 % BMI (Body Mass Index) 34.9 kg/m2 Results Test Acquired Date Facility Test Result H/L Range Note Laboratory test 01/12/2019 [facility] Point of Care 114 mg/dL High 70-[address] [place] [address] [phone] Surgical 01/04/2019 [facility] Surgical SEE RESULT [address] [place] [address] [phone] PDFReport SEE IMAGE CBC Auto 01/03/2019 [facility] White Blood 6.1 10^3/uL Normal 3.5-10.[address] [place] [address] [phone] Red Blood Count 4.86 10^6/uL Normal 4.18-5.48 [...] Blood Cells % 0.1 Comp Metabolic 01/03/2019 [facility] Sodium 138 mmol/L Normal 135-[address] [place] [address] [phone] Potassium 4.3 mmol/L Normal 3.5-5.0 Chloride 103 [...] >60 Egfr 87.4 >60 3 Laboratory 01/03/2019 [facility] Carcinoembryonic 1.5 Normal 0.1-5.0 4 test finding [address] Antigen Cea ng/[place] [address] [phone] Lipid Profile 11/10/2018 [facility] Triglycerides 131 5, (Trig/Chol/HD [address] mg/dL 6 L) [place] [address] [phone] Cholesterol 162 mg/dL 7 HDL Cholesterol 46.0 mg/dL 8 LDL Cholesterol 90 mg/dL 9 Laboratory test 11/10/2018 [facility] Hemoglobin A1c 6.7 % High 4.0-5.6 [address] (Glyco HGB) [place] [address] [phone] Laboratory test 11/10/2018 [facility] PSA Screening 1.025 0- 4.0 [address] ng/[place] [address] [phone] Security Alarm Technician: [id number] 2 SEE RESULT BELOW Name: MIGUEL ÁNGEL EPPERSON NADYA : [address]: Daniel Rodriguez MD Acct: [id number] Unit: [id number] AGE: 68 Location: ENDO Re01/04/19 SEX: M Status: DEP REF SPEC: [id number] MAY: 01/04/19- [facility] DR: Daniel Rodriguez MD REQ: [id number] RECD: 01/04/19 STATUS: KATELIN BISHOP DR: Benja [...] 1251 END OF REPORT DEPARTMENT OF PATHOLOGY, [address] [place] [address] Pineda Garay M.D. Director [facility] # [id number] 3 Because ethnic data is not always [...] The testing method is an immunoenzymatic assay special education professor by Dinorah [employer] ([employer]) performed on Dinorah Voxel (Intern[employer]) DXI 600. Do not interpret serum CEA [...] in selective patients <6.0%. Please refer to [place] [employer] diabetic care guidelines for further information. 11 Serum levels of PSA measured using the Dinorah Anamika DXI Hybritech immunoassay should not be interpreted as absolute evidence of the presence or absence of disease. The PSA value should be used in conjunction with other pertinent clinical diagnostic procedures. The values obtained with different assay methods or kits cannot be used interchangeably. Procedures Date Code Description Status 01/12/2019 43068 Arthroscopy Shoulder,W/Rotator Cuff Repair Completed 01/12/2019 24609 Arthroscopy Shoulder,W/Rotator Cuff Repair Completed 01/12/2019 14659 Arthroscopy Shoulder,W/Rotator Cuff Repair Completed 01/12/2019 35420 Arthroscopy,Shoulder,Distal Claviculectomy Incl Dist Completed Articular SR 01/12/2019 83111 Arthroscopy,Shoulder,Distal Claviculectomy Incl Dist Completed Articular SR 01/12/2019 55623 Arthroscopy,Shoulder,Distal Claviculectomy Incl Dist Completed Articular SR 01/04/2019 99067 Colonoscopy Flexible Remove Tumor/Polyp/Lesion Snare Completed Technique 10/19/2018 98767 Inj/Aspir, Intermediate Joint/Bursa W/ US Completed 02/21/2017 230912964 Diabetic Retinal Eye Exam Completed 11/20/2016 [id number] Colonoscopy Completed 05/11/2015 [id number] Colonoscopy Completed 10/21/2014 514154230 Diabetic Retinal Eye Exam Completed Medical Devices Description No Information Available Encounters Type Date Location Provider Dx Diagnosis Office Visit 12/22/2018 Stoney Jensen Z01.818 Encounter for other 2:20p Medicine - Madhuri Mcgraw M.D. preprocedural examination S46.012A Strain of musc/tend the rotator cuff of left shoulder, init E11.9 Type 2 diabetes mellitus without complications I10 Essential (primary) hypertension E78.00 Pure hypercholesterolemia, unspecified N40.0 Benign prostatic hyperplasia without lower urinry tract symp Z79.01 FPC (current) use of anticoagulants M25.512 Pain in left shoulder Office Visit 12/14/2018 [facility] swati Jackson S46.012D Strain of 10:00a Gene Gallo MD musc/tend the rotator cuff of left shoulder, subs Office Visit 11/29/2018 [facility] Gastroenterology Peter T. 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 E11.40 Type 2 diabetes Tri Mcgraw M.D. 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 R25.1 Tremor, unspecified Office Visit 11/11/2018 8:45a [facility] Manuel Gallo, S46.012D Strain of at Gene LOWERY musc/tend the rotator cuff of left shoulder, subs S46.012A Strain of musc/tend the rotator cuff of left shoulder, init Office Visit 10/19/2018 [facility] M19.212 Secondary 11:30a Orthopedics swati Gallo MD osteoarthritis, left [place] shoulder M24.022 Loose body in left elbow M70.22 Olecranon bursitis, left elbow Office Visit 09/07/2018 1:00p [facility] Manuel Gallo S46.012D Strain of at Gene valentino/tend the rotator cuff of left shoulder, subs S46.102A Unsp injury of musc/fasc/tend long hd bicep, left arm, init Assessments Date Code Description Provider 02/22/2019 S46.012D Strain of muscle(s) and tendon(s) of the Manuel Gallo MD rotator cuff of left shoulder, subsequent encounter 02/22/2019 M19.011 Primary osteoarthritis, right shoulder Manuel Gallo MD 02/22/2019 S50.02xA Contusion of left elbow, initial Manuel Gallo MD encounter 01/27/2019 S46.012D Strain of muscle(s) and tendon(s) [...] of muscle(s) and tendon(s) of the Juju Piecre PA-Lucita rotator cuff of left shoulder, initial encounter 01/12/2019 M19.012 Primary osteoarthritis, left shoulder RACHEL CabralesC 01/12/2019 M19.012 Primary osteoarthritis, left shoulder RACHEL CabralesC 01/12/2019 S46.012A Strain of muscle(s) and tendon(s) [...] 12/22/2018 N40.0 Benign prostatic hyperplasia without Benja Mcgraw M.D. lower urinary tract sym 12/22/2018 Z79.01 FPC (current) use of anticoagulants Benja Mcgraw M.D. [...] of Daniel Rodriguez MD unspecified veins of rig 11/29/2018 Z79.01 rn long term care (current) use of anticoagulants Daniel Rodriguez MD 11/15/2018 E11.40 Type 2 diabetes mellitus with diabetic Benja Mcgraw M.D. neuropathy, unspecified 11/15/2018 E78.00 Pure hypercholesterolemia, unspecified Benja Mcgraw M.D. 11/15/2018 N40.0 Benign prostatic hyperplasia without Benja Mcgraw M.D. lower urinary tract sym 11/15/2018 C20 Malignant neoplasm of rectum Benja Mcgraw M.D. 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 unspecified veins of rig 11/15/2018 R25.1 Tremor, unspecified Benja Mcgraw M.D. [...] left elbow, subsequent Manuel Gallo MD encounter 09/07/2018 S46.012D Strain of muscle(s) and tendon(s) of the Manuel Gallo MD rotator cuff of left shoulder, subsequent encounter 09/07/2018 S46.102A Unspecified injury of muscle, fascia and Manuel Gallo MD tendon of long head of biceps, left arm, initial encounter Plan of Treatment Future Appointment(s):03/17/2019 2:00 pm - Manuel Gallo MD at [facility] at Xjdqbh9003/25/2019 11:15 am - Gordy Wills M.D. at [facility]05/17/2019 10:20 am - Benja Mcgraw M.D. at [facility] Internal Medicine - [facility]02/22/2019 - Manuel Gallo MDS46.012D Strain of muscle( s) and tendon(s) of the rotator cuff of left shoulder, subsequent encounterFollow up:Follow up: 1st week of march or 6 weeks with pqjbgqW91.011 Primary osteoarthritis, right gjyjwarrJ05.02xA Contusion of left elbow, initial encounter Functional Status Description No Information Available Mental Status Description No Information Available Referrals Refer to Reason for Referral Status Appt Date Gordy Wills M.D. newly noted head and hand tremor sx Sent 03/25/[address] [place] [address] [place] [address] [phone]
--- OUTSIDE RECORDS SUMMARY | 2019-04-01 15:19 | XMS REPORT | Continuity of Care Document ---
:1950 External Reference #:[id number] Author Name Manuel Gallo MD (transmitted by agent of provider Karla Najera) Address [address] [facility], [place] [address] Care Team Providers Name Role Phone Yusuf Elizalde MD - Care Team Information Dance Choreographer [phone] Otolaryngology Paola Orozco NP - Diabetes Care Team Information Dance Choreographer Educator Benja Mcgraw III, MD - Internal Care Team Information Dance Choreographer Medicine Guero Castro DPM - Foot Surgery Care Team Information Dance Choreographer Gordy Wills M.D. - Neurology Care Team Information Dance Choreographer [phone] Problems Active Problems Provider Date Adenocarcinoma of [...] M.D. Onset: 12/22/2018 Localized, primary osteoarthritis of the Manuel Gallo MD Onset: 02/22/2019 shoulder region Social History Type Date Description Comments Sex Unknown Tobacco Use Start: Unknown Former Cigarette Smoker Quit 1979 End: Unknown Smoking Status Reviewed: 03/24/19 Former Cigarette Smoker Quit 1979 ETOH Use [...] take 1 capsule by 90caps E11.9 Benja E. 12/13/2014 2.5mg Capsules mouth every day Gregorio Mcgraw Meclizine HCL 1 po q8hr prn for 30tabs Jakob Naylor 08/12/2011 25mg dizziness or Gregorio Carter,FACP Tablets motion sickness Ondansetron Odt dissolve 1 tablet 20tabs Jakob Naylor 08/12/2011 4mg q6-8hr prn nausea Gregorio Carter,FACP Tablets Dispers Gabapentin take 1 capsule in 270caps Benja E. 300mg the morning & 2 Gregorio Mcgraw Capsules capsules at bedtime Flomax 1 by mouth every Unknown 0.4mg Capsules day Multivitamin Adult 1 by mouth every Unknown day Tablets Omeprazole take 1 capsule by 90caps Benja EMaximilian 20mg mouth every other Gregorio Mcgraw Capsules DR day Onetouch Ultra Blue test twice a day 150units Jakob Naylor Gregorio Carter,FACP Strips Onetouch Delica test twice a day 150units Jakob Naylor Lancets Fine 30G Gregorio Carter,FACP 30G Misc History Medications Oxycodone-Acetaminophen 1 tabs by mouth [...] CPT Code Status Date Vaccine Lot # [id number] Given 12/14/2017 Tdap - Tetanus/Diptheria/Acellular Pertussis [id number] Given 11/13/2017 Pneumococcal Conjugate Vaccine 13 Valent For [id number] Intramuscular Use 62875 Given 06/13/2015 Zoster (Zostavax) [id number] 24869 Given 12/13/2014 Pneumonia Vaccine [id number] Refused 12/19/2015 Influ Virus Vaccine, Quadrivalent, Split Virus, Im Fluzone not PF Vital Signs Date Vital Result Comment 03/24/2019 9:07am Height 66 inches 5'6" Weight 216.00 lb Heart Rate 100 /min BP Systolic 138 mmHg BP Diastolic 72 mmHg Respiratory Rate 18 /min Pain Level 2 BMI (Body Mass Index) 34.9 kg/m2 02/22/2019 2:02pm Height 66 inches 5'6" Weight 216.00 lb Heart Rate 84 /min BP Systolic 160 mmHg BP Diastolic 88 mmHg Respiratory Rate 18 /min Pain Level 7 BMI (Body Mass Index) 34.9 kg/m2 Results Test Acquired Date Facility Test Result H/L Range Note Laboratory test 01/12/2019 [facility] Point of Care 114 mg/dL High 70-100 [address] [address] [phone] Surgical 01/04/2019 [facility] Surgical SEE RESULT [address] [place] [address] [phone] PDFReport SEE IMAGE CBC Auto 01/03/2019 [facility] White Blood 6.1 10^3/uL Normal 3.5-10.[address] [place] [address] [phone] Red Blood Count 4.86 10^6/uL Normal 4.18-5.48 [...] Blood Cells % 0.1 Comp Metabolic 01/03/2019 [facility] Sodium 138 mmol/L Normal 135-[address] [place] [address] [phone] Potassium 4.3 mmol/L Normal 3.5-5.0 Chloride 103 [...] >60 Egfr 87.4 >60 3 Laboratory 01/03/2019 [facility] Carcinoembryonic 1.5 Normal 0.1-5.0 4 test finding [address] Antigen Cea ng/[place] [address] [phone] Lipid Profile 11/10/2018 [facility] Triglycerides 131 5, (Trig/Chol/HD [address] mg/dL 6 L) [place] [address] [phone] Cholesterol 162 mg/dL 7 HDL Cholesterol 46.0 mg/dL 8 LDL Cholesterol 90 mg/dL 9 Laboratory test 11/10/2018 [facility] Hemoglobin A1c 6.7 % High 4.0-5.6 [address] (Glyco HGB) [place] [address] [phone] Laboratory test 11/10/2018 [facility] PSA Screening 1.025 0- 4.0 [address] ng/[place] [address] [phone] Poker Supervisor: [id number] 2 SEE RESULT BELOW Name: MIGUEL ÁNGEL EPPERSON NADYA : [address]: Daniel Rodriguez MD Acct: [id number] Unit: [id number] AGE: 68 Location: ENDO Re01/04/19 SEX: M Status: DEP REF SPEC: [id number] MAY: 01/04/19- [facility] DR: Daniel Rodriguez MD REQ: [id number] RECD: 01/04/19 STATUS: KATELIN BISHOP DR: Benja [...] 1251 END OF REPORT DEPARTMENT OF PATHOLOGY, [address] [place] [address] Pineda Garay M.D. Director [facility] # [id number] 3 Because ethnic data is not always [...] The testing method is an immunoenzymatic assay regional program manager by [employer] performed on Dinorah Sentons DXI 600. Do not interpret serum CEA [...] in selective patients <6.0%. Please refer to [place] [employer] diabetic care guidelines for further information. 11 Serum levels of PSA measured using the Dinorah Sentons DXI Hybritech immunoassay should not be interpreted as absolute evidence of the presence or absence of disease. The PSA value should be used in conjunction with other pertinent clinical diagnostic procedures. The values obtained with different assay methods or kits cannot be used interchangeably. Procedures Date Code Description Status 01/12/2019 22339 Arthroscopy Shoulder,W/Rotator Cuff Repair Completed 01/12/2019 71527 Arthroscopy Shoulder,W/Rotator Cuff Repair Completed 01/12/2019 34879 Arthroscopy Shoulder,W/Rotator Cuff Repair Completed 01/12/2019 39893 Arthroscopy,Shoulder,Distal Claviculectomy Incl Dist Completed Articular SR 01/12/2019 87024 Arthroscopy,Shoulder,Distal Claviculectomy Incl Dist Completed Articular SR 01/12/2019 18412 Arthroscopy,Shoulder,Distal Claviculectomy Incl Dist Completed Articular SR 01/04/2019 69300 Colonoscopy Flexible Remove Tumor/Polyp/Lesion Snare Completed Technique 10/19/2018 42953 Inj/Aspir, Intermediate Joint/Bursa W/ US Completed 02/21/2017 [id number] Diabetic Retinal Eye Exam Completed 11/20/2016 95343054 Colonoscopy Completed 05/11/2015 28880832 Colonoscopy Completed 10/21/2014 861894265 Diabetic Retinal Eye Exam Completed Medical Devices [...] hyperplasia without lower urinry tract symp Z79.01 termite exterminator helper (current) use of anticoagulants M25.512 Pain in left shoulder Office Visit 12/14/2018 [facility] swati Jackson S46.012D Strain of 10:00a Gene Gallo MD musc/tend the rotator cuff of left shoulder, subs Office Visit 11/29/2018 [facility] Gastroenterology Peter T. 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 E11.40 Type 2 diabetes Tri Mcgraw M.D. 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 R25.1 Tremor, unspecified Office Visit 11/11/2018 8:45a [facility] Manuel Gallo, S46.012D Strain of at Gene LOWERY musc/tend the rotator cuff of left shoulder, subs S46.012A Strain of musc/tend the rotator cuff of left shoulder, init Office Visit 10/19/2018 [facility] M19.212 Secondary 11:30a Orthopedics at MD Sabino osteoarthritis, left [place] shoulder M24.022 Loose body in left elbow M70.22 Olecranon bursitis, left elbow Assessments Date Code Description Provider 03/24/2019 S46.012D Strain of muscle(s) and tendon(s) of the Manuel Gallo MD rotator cuff of left shoulder, subsequent encounter 03/24/2019 S50.02xA Contusion of left elbow, initial Manuel Gallo MD encounter 03/24/2019 S46.012D Strain [...] PA-C 01/12/2019 M19.012 Primary osteoarthritis, left shoulder LEON Cabrales-C 01/12/2019 S46.012A Strain of muscle(s) and tendon(s) [...] M.D. lower urinary tract sym 12/22/2018 Z79.01 assisted (current) use of anticoagulants Benja Mcgraw M.D. [...] MD unspecified veins of rig 11/29/2018 Z79.01 assisted (current) use of anticoagulants Daniel Rodriguez MD [...] Gallo MD encounter Plan of Treatment Future Appointment(s):05/10/2019 10:30 am - Elie Hernandez MD at [facility] at [id number]/17/2019 10:20 am - Benja Mcgraw M.D. at [facility] Internal Medicine - [facility]03/24/2019 - Manuel Gallo MDS46.012D Strain of muscle( s) and tendon(s) of the rotator cuff of left shoulder, subsequent encounterNew Therapy:Physical TherapyFollow up:Follow up: with sharon in 6 swxsoC71.02xA Contusion of left elbow, initial encounter Functional Status Description No Information Available Mental Status Description No Information Available Referrals Refer to Reason for Referral Status Appt Date Gordy Wills M.D. newly noted head and hand tremor sx Sent 03/25/[address] [place] [address] [phone]
[2019-04-01] MEDS ORDERED: NS 0.9% 1000 ML** 1,000 ML IV ONE ×3 (15:46→19:04)
[2019-04-01] MEDS ORDERED: Al Hydrox/Mg Hydrox/Simet LIQ* 30 ML UDC PO ONE (15:46)
[2019-04-01] MEDS ORDERED: Lidocaine 2% VISCOUS* 15 ML UDC PO ONE (15:46)
[2019-04-01 15:52] LABS: INR 1.26 (0.82-1.09)
[2019-04-01 15:54] LABS: ABS Lymphocytes 0.8 10^3/ul (1.0-4.8); ABS Monocytes 0.7 10^3/ul (0-0.8); ABS Neutrophils 10.8 10^3/ul (1.5-7.7); Hematocrit 51 % (42-52); Hemoglobin 17.9 g/dL (14.0-18.0); Lymphocyte % 6.5 %; Mean Corpuscular HGB Conc 35 g/dL (31-36); Mean Corpuscular Hemoglobin 36 pg (27-31); Mean Corpuscular Volume 101 fL (80-94); Mean Platelet Volume 6.8 fL (7.4-10.4); Nucleated Red Blood Cells % 0.1; Platelet Count 221 10^3/uL (150-450); Red Cell Distribution Width 13 % (10-15); White Blood Count 12.3 10^3/uL (3.5-10.8)
--- NOTE | 2019-04-01 15:59 | ED ---
Abdominal Pain/Male - HPI Summary HPI Summary: The patient is a 73 y/o M presenting to [facility] with a chief complaint of epigastric pain onset today around 0030/0100. He thought the pain was related to trapped gas, but he had adelina stacey without any relief of the symptoms. The pain does not radiate anywhere. He endorses nausea and one episode of vomiting that he attributes to drinking a large amount of the adelina stacey. He denies any CP, SOB, diarrhea, edema in the lower extremities, or calf pain or swelling. Symptoms rated 4/10 in severity. He notes small BMs today although he has chronic irregular BMs secondary to colon cancer. No history of overuse of Aspirin or Ibuprofen, no gastric ulcers or bleeding. PMHx: Type 2 diabetes, HTN , PE, bowel resection, GERD, hiatal hernia, kidney stones, neuropathy, Meniere' s disease, central tremor. Former smoker, rare EtOH, no substance use. Medications reviewed. Allergies noted. - History of Current Complaint Chief Complaint: EDChestPainROMI Stated Complaint: CHEST PAIN PER PT Time Seen by Provider: 04/01/19 15:43 Hx Obtained From: Patient Onset/Duration: Gradual Onset, Lasting Hours - , Still Present Timing: Constant Severity Initially: Mild Severity Currently: Moderate Pain Intensity: 4 Pain Scale Used: 0-10 Numeric Location: Epigastric Radiates: No Aggravating Factor(s): Nothing Alleviating Factor(s): Nothing Associated Signs And Symptoms: Positive: Nausea, Vomiting, Other - Negative: SOB , edema, calf swelling or pain. Negative: Chest Pain - Allergies/Home Medications Allergies/Adverse Reactions: Allergies Allergy/AdvReac Type Severity Reaction Status Date / Time Penicillins Allergy Severe Nausea And Verified 01/12/19 13:35 Vomiting Home Medications: Home Medications Meclizine TAB* [Antivert 12.5 TAB*] 25 mg PO Q8HR PRN 10/09/14 [History Confirmed 04/01/19] Gabapentin CAP(*) [Neurontin 300 CAP(*)] 300 mg PO QAM 11/17/16 [History Confirmed 04/01/19] DULoxetine DR CAP* [Cymbalta CAP*] 40 mg PO BID 11/20/16 [History Confirmed ] Lovastatin (NF) [Mevacor (NF)] 10 mg PO 1730 06/09/18 [History Confirmed ] Omeprazole CAP (NF) [Prilosec CAP* 20 MG] 20 mg PO DAILY 06/09/18 [History Confirmed 04/01/19] Methylcellulose (with Sugar) [Citrucel Powder] 1 tbsp PO QAM 12/01/18 [History Confirmed 04/01/19] Multivitamins/Minerals TAB* [Theragran/minerals TAB*] 1 tab PO QAM 12/01/18 [ History Confirmed 04/01/19] Rivaroxaban TAB(*) [Xarelto 20 mg] 20 mg PO 1730 12/01/18 [History Confirmed ] Gabapentin CAP(*) [Neurontin 300 CAP(*)] 600 mg PO BEDTIME 04/01/19 [History Confirmed 04/01/19] Ondansetron TAB* [Zofran 4 MG Tab*] 4 mg PO Q6H PRN 04/01/19 [History Confirmed 04/01/19] Ramipril CAP* [Altace CAP*] 2.5 mg PO QAM 04/01/19 [History Confirmed 04/01/19] Tamsulosin CAP* [Flomax CAP*] 0.4 mg PO BEDTIME 04/01/19 [History Confirmed ] PMH/Surg Hx/FS Hx/Imm Hx Endocrine/Hematology History: Reports: Hx Diabetes - DIET CONTROLLED DOES A FINGER STICK rarely Cardiovascular History: Reports: Hx Hypertension Denies: Hx Congestive Heart Failure, Hx Pacemaker/ICD Respiratory History: Reports: Hx Pulmonary Embolism - 2016 both lungs after cancer surgery- on xeralto GI History: Reports: Hx Gastroesophageal Reflux Disease, Hx Hiatal Hernia, Other GI Disorders - Hernia repair as a child History: Reports: Hx Kidney Stones - 2017, Other Problems/Disorders - URINE FLOW SLOWED DOWN ON FLOMAX Denies: Hx Dialysis, Hx Renal Disease Musculoskeletal History: Reports: Hx Tendonitis - left shoulder, Other Musculoskeletal History - LEFT SHOULDER Sensory History: Reports: Hx Contacts or Glasses - glasses for reading- uses cheater readers Denies: Hx Hearing Aid Opthamlomology History: Reports: Hx Contacts or Glasses - glasses for reading- uses [employer]ater readers Neurological History: Reports: Hx Migraine - none in 6-7 years- stressed, Hx Nerve Disease - neuropathy from chemo, Hx Peripheral Neuropathy - Hands and feet , Other Neuro Impairments/Disorders - central tremor, R/T MENIERE'S DISEASE Psychiatric History: Denies: Hx Panic Disorder - Cancer History Cancer Type, Location and Year: dx neoplasm large intestine. Colon CA Hx Chemotherapy: Yes - and radiation Hx Radiation Therapy: Yes - Surgical History Surgical History: Yes Surgery Procedure, Year, and Place: bilateral inguinal hernia repair as a child, . bowel resection , left shoulder. POWER PORT/REMOVED - NOW HAS LYMPHADEMA - WEARS A COMPRESSION SLEEVE- Rt ARM NO BP OR LABS IN THAT ARM Hx Anesthesia Reactions: No Infectious Disease History: No Infectious Disease History: Denies: Traveled Outside the [place] in Last 30 Days - Family History Known Family History: Negative: Renal Disease Family History: No FHx anesthesia reaction, no FHx malignant hyperthermia - Social History Alcohol Use: Rare Alcohol Amount: 1 BEER Hx Substance Use: No Substance Use Type: Reports: None Hx Tobacco Use: Yes Smoking Status (MU): Former Smoker Type: Cigarettes Amount Used/How Often: 1PPD Have You Smoked in the Last Year: No Review of Systems Negative: Chest Pain Negative: Shortness Of Breath Positive: Abdominal Pain - epigastric, Vomiting - one episode, Nausea. Negative : Diarrhea Negative: Edema, Other - calf pain or swelling All Other Systems Reviewed And Are Negative: Yes Physical Exam - Summary Physical Exam Summary: Constitutional: Well-developed, Well-nourished, Alert. (-) Distressed Skin: Warm, Dry HENT: Normocephalic; Atraumatic Eyes: Conjunctiva normal Neck: Musculoskeletal ROM normal neck. (-) JVD, (-) Stridor, (-) Tracheal deviation Cardio: Rhythm regular, rate normal, Heart sounds normal; Intact distal pulses; The pedal pulses are 2+ and symmetric. Radial pulses are 2+ and symmetric. (-) Murmur Pulmonary/Chest wall: Effort normal. (-) Respiratory distress, (-) Wheezes, (-) Rales Abd: Soft, (+) Mild epigastric tenderness, (-) Distension, (-) Guarding, (-) Rebound Musculoskeletal: (-) Edema Lymph: (-) Cervical adenopathy Neuro: Alert, Oriented x3, Resting tremor noted Psych: Mood and affect Normal Rectal: No gross blood Triage Information Reviewed: Yes Vital Signs On Initial Exam: Initial Vitals Temp Pulse Resp BP Pulse Ox 97.8 F 90 18 182/97 99 04/01/19 14:30 04/01/19 14:30 04/01/19 14:30 04/01/19 14:30 04/01/19 14:30 Vital Signs Reviewed: Yes Procedures - Sedation Patient Received Moderate/Deep Sedation with Procedure: No Diagnostics - Vital Signs Vital Signs Temp Pulse Resp BP Pulse Ox 04/01/19 15:46 87 98 04/01/19 14:30 97.8 F 90 18 182/97 99 - Laboratory Lab Results: Lab Results 04/01/19 Range/Units 15:31 INR (Anticoag Therapy) 1.26 H (0.82-1.09) Result Diagrams: 04/02/19 07:11 04/02/19 07:11 Lab Statement: Any lab studies that have been ordered have been reviewed, and results considered in the medical decision making process. - Ultrasound Abdominal US Ultrasound Interpretation Completed By: Radiologist Summary of Ultrasound Findings: Impression: 1. The gallbladder is distended with both adherent and mobile echogenic material. This could be sludge; however , attention on follow-up CT for evidence of enhancement/solid mass. 2. No intraextra hepatic biliary ductal dilatation. 3. Hepatic steatosis. 4. Probable focal fatty sparing along the gallbladder fossa (attention on CT). This imaging report was reviewed by Dr. Wong. - EKG 1425 Cardiac Rate: NL - 94 BPM EKG Rhythm: Sinus Rhythm Summary of EKG Findings: An EKG at 1425 reveals normal sinus rhythm at 94 BPM. No ischemic changes. This EKG was reviewed and interpreted by Dr. Wong. Re-Evaluation - Re-Evaluation First Eval Re-Evaluation Time: 19:05 Comment: Patient agreeable with admission plan. Abdominal Pain Male Course/Dx - Course Course Of Treatment: 73 y/o M presenting with constant epigastric pain since 0030/0100 this morning which does not radiate although is accompanied by nausea and one episode of vomiting. Hx includes type 2 diabetes, HTN, PE, colon cancer with bowel resection, GERD, hiatal hernia, central tremor, Menieres disease. Physical exam positive for mild epigastric tenderness without distension, resting tremor noted. Rectal exam negative for gross blood. IV access obtained. Patient received fluids and GI cocktail. Blood work reveals WBCs of 12.3, MCV of 101, MCH of 36, MPV of 6.8, abs neuts of 10.8, INR of 1.26, anion gap of 13, glucose of 211, total bili of 1.4. Negative first troponin. Patient received Protoniz, Zofran, Morphine, and more fluids 2L. An EKG at 1425 reveals normal sinus rhythm at 94 BPM, no ischemic changes. Abdominal US reveals distended gallbladder with adherent and mobile echogenic material with sludge vs enhancement/solid mass, hepatic steatosis. Dr. Frank from hospitalist services , accepts the patient for admission, pending Abd/Pel CT. All results discussed. Patient agreeable with plan. - Diagnoses Provider Diagnoses: Epigastric abdominal pain - Provider Notifications Discussed Care Of Patient With: Tarun Frank - hospitalist Time Discussed With Above Provider: 19:15 Instructed by Provider To: Other - I discussed the patients case with Dr. Frank, who accepts the patient for admission, pending Abd/Pel CT. Discharge ED - Sign-Out/Discharge Documenting (check all that apply): Patient Departure - Patient accepted for admission by Dr. Frank. - Discharge Plan Condition: Stable Disposition: ADMITTED TO [facility] - Billing Disposition and Condition Condition: STABLE Disposition: Admitted to [facility] - Attestation Statements Document Initiated by Kayleen: Yes Documenting Scribe: Lorri Marvin Provider For Whom Kayleen is Documenting (Include Credential): Dr. Gordy Wong DO Scribe Attestation: Lorri Crystal scribed for Dr. Gordy Wong DO on 04/02/19 at 1025. Scribe Documentation Reviewed: Yes Provider Attestation: The documentation as recorded by the Lorri nichole accurately reflects the service I personally performed and the decisions made by me, Dr. Gordy Wong DO Status of Scribe Document: Viewed
[2019-04-01 16:13] LABS: Albumin 5.1 g/dL (3.2-5.2); Albumin/Globulin Ratio 1.9 (1-3); BUN/Creatinine Ratio 15.5 (8-20); Calcium 10.2 mg/dL (8.6-10.3); EGFR African American 110.6 (>60); EGFR Non-African American 91.4 (>60); Globulin 2.7 g/dL (2-4); Potassium 3.9 mmol/L (3.5-5.0); Total Bilirubin 1.4 mg/dL (0.2-1.0); Total Protein 7.8 g/dL (6.4-8.9)
[2019-04-01] MEDS ORDERED: Ondansetron INJ* 2 MG/ML VIAL IV ONE (17:03)
[2019-04-01] MEDS ORDERED: Morphine 4 MG/ML VIAL (1 ml) 4 MG/ML VIAL IV ONE ×2 (17:03→19:04)
[2019-04-01] MEDS ORDERED: Iodixanol* (CONTRAST) 320 MG/ML 100 ML SDV IV ONE (17:11)
[2019-04-01] MEDS ORDERED: Pantoprazole IV* 40 MG IV ONE (19:04)
[2019-04-01] MEDS ORDERED: Ondansetron INJ* 2 MG/ML VIAL IV PRN (21:08)
[2019-04-01] MEDS ORDERED: HYDROmorphone INJ* 0.5 MG/0.5 ML SYRINGE IV ONE (21:21)
[2019-04-01] MEDS ORDERED: Pantoprazole IV* 40 MG IV SCH (22:00)
[2019-04-01] MEDS ORDERED: ceFAZolin 2 GM PREMIX in ORs 2 GM/50 ML BAG IVPB SCH (22:00)
[2019-04-01] MEDS: ceFAZolin* 2 GM in NS 100 MLS Q8H (Pharmacy Admix) IVPB SCH (23:34)
[2019-04-01] MEDS: HYDROmorphone INJ* 0.5 MG/0.5 ML SYRINGE IV PRN (23:34)
[2019-04-01] MEDS: Heparin VIAL(*) 5000 UNITS/ML VIAL (FIVE THOUSAND) SUBCUT SCH (23:35)
[2019-04-01] MEDS: NS 0.9% 1000 ML** 1,000 ML IV SCH (23:38)
[2019-04-02] MEDS ORDERED: Dextrose 50% Syringe 50 ML* 25 GM/50 ML SYRINGE IV PUSH PRN (00:11)
[2019-04-02] MEDS: metroNIDAZOLE IV 500 MG/100ML* 500 MG/100 ML BAG IVPB SCH ×4 (00:11→23:14)
--- NOTE | 2019-04-02 02:32 | HP ---
AMENDED REPORT NOW INCLUDES DESIGNATED COSIGNER ADMISSION HISTORY AND PHYSICAL: DATE OF ADMISSION: 04/01/19 PROVIDER: Angela Mejia NP. PRIMARY CARE PHYSICIAN: Dr. Mcgraw. ATTENDING PHYSICIAN: Dr. Frank.* (DICTATED BY ANGELA MEJIA NP) OTHER PROVIDERS: Dr. Sears. CHIEF COMPLAINT: Epigastric pain. HISTORY OF PRESENT ILLNESS: This is a 68-year-old male with a past medical history significant for colon cancer with chemo and radiation, diabetes, bilateral PEs, hypertension, who came to the emergency room on 04/01/19 after feeling progressively worsening epigastric pain with nausea. It started early in the morning of 04/01/19 around 1:00 in the morning. The patient stated that he had eaten a normal meal and had felt fine. Several hours after he had laid down to go to bed, he felt a band of dull pain and pressure across the top of his stomach, which he has associated with gas in the past and normally when he gets this type of feeling, he drinks adelina stacey and it helps, though he stated that he drank almost a whole bottle of adelina stacey and it did not alleviate the feeling. He fell asleep for a couple of hours and woke up again around 2 o' clock in the morning with worsening band of epigastric pain that was worse with sitting up or trying to button pants over his stomach and it was better with resting and laying flat. He stated that he did have a bowel movement this morning that was normal in color. The only thing unusual about it was that it was more hard than usual. In the emergency room, he received IV morphine x2, a total of 3 L IV fluids and some Protonix. Labs were drawn, imaging was done including ultrasound and a CT of the abdomen, and the hospitalists were asked to evaluate the patient for admission. PAST MEDICAL HISTORY: 1. Lymphedema in the left upper extremity. 2. Colon cancer with chemo and radiation. 3. Meniere's disease. 4. Peripheral neuropathy. 5. Central tremors. 6. Diabetes type 2. 7. Hypertension. 8. Bilateral PEs in 2016. 9. GERD. 10. Hiatal hernia. 11. Kidney stones. 12. Tendonitis in the left shoulder. 13. BPH. 14. Migraines. PAST SURGICAL HISTORY: 1. Bilateral inguinal hernia repair as a child. 2. Bowel resection. 3. Left rotator cuff surgery x2. HOME MEDICATIONS: 1. Duloxetine 40 mg p.o. b.i.d. 2. Citrucel powder 1 tablespoon p.o. b.i.d. 3. Lovastatin 10 mg p.o. daily. 4. Multivitamin 1 tab p.o. q. a.m. 5. Ramipril 2.5 mg p.o. q. a.m. 6. Ondansetron 4 mg p.o. q.6 hours p.r.n. 7. Tamsulosin 0.4 mg at bedtime. 8. Rivaroxaban 20 mg p.o. daily. ALLERGIES: PENICILLIN. FAMILY HISTORY: Denies any pertinent family history. SOCIAL HISTORY: He quit smoking in 1979. He rarely drinks any ETOH. Denies any recreational substance use. He works at [employer]. He is not and has no children. REVIEW OF SYSTEMS: A 12-point system review was performed, which was positive for epigastric pain and nausea. Negative for any lightheadedness, dizziness, fever, chills, chest pain, palpitations, or issues moving his bowel or bladder. PHYSICAL EXAMINATION GENERAL: This is a well-developed gentleman seen resting in the bed, in no acute distress. VITAL SIGNS: 98.3 Fahrenheit, 101 pulse, 18 respirations, 98% oxygen on room air, and 122/80 blood pressure. HEENT: Conjunctivae pink and moist. PERRLA. EOMs intact. Oropharynx clear. Mucous membranes moist. NECK: Supple. RESPIRATORY: Lung sounds clear throughout bilaterally on room air. No accessory muscle use noted. CARDIAC: S1, S2 present. Heart rate regular, though tachy. No murmurs, gallops, or rubs appreciated. ABDOMEN: Soft, distended. It is tender, particularly throughout the right side with positive bowel sounds x4. MUSCULOSKELETAL: No clubbing or cyanosis of the digits. Able to move all extremities. NEUROLOGIC: Sensation intact to light touch. No focal deficits appreciated. SKIN: No open areas or lesions appreciated. PSYCH: Alert and oriented x4,. Thought content organized. DIAGNOSTIC STUDIES: Abdomen CT suggested changes of possible acute cholecystitis, which was not confirmed on the previous ultrasound. Consider followup HIDA scan. Also showed Bosniak type 1 renal cyst. No followup is indicated. Ultrasound of the abdomen: 1. The gallbladder is distended with both adherent and mobile echogenic material, this could be sludge; however, attention on followup CT for evidence of enhancement/solid mass. 2. No intra/extrahepatic biliary ductal dilatation. 3. Hepatic steatosis. 4. Focal fatty sparing along the gallbladder fossa. PERTINENT LAB DATA: WBC 12.3, MCV 101, MCH 36. Anion gap 13, glucose 211. Lactic acid 2, total bilirubin 1.40, troponin 0. ASSESSMENT AND PLAN: IMPRESSION: This is a 68-year-old male with a past medical history significant for diabetes, colon cancer with chemo and radiation and bilateral pulmonary emboli, who is being admitted on 04/01/19 for sepsis secondary to possible cholecystitis. 1. Sepsis secondary to possible cholecystitis. This is as evidenced by leukocytosis over 12 and tachycardia and tachypnea. Dr. Sears was consulted , who will see the patient in the morning. The patient was started on cefazolin and Flagyl, and due to lack of adequate pain control with morphine, he was given IV Dilaudid. I have started on clears diet and given IV Protonix. 2. Diabetes type 2. His last hemoglobin A1c was done in November 2018 with a value of 6.7. The diabetes is diet controlled at home and rarely checks fingersticks. While he is in the hospital, we will check fingersticks a.c. with sliding scale lispro insulin. 3. Hypertension. His blood pressures in the emergency room were elevated as high as 180s systolically on several different readings. We will continue his ramipril. 4. Benign prostatic hypertrophy. Continue Flomax. 5. Hyperlipidemia. Continue lovastatin. 6. History of pulmonary emboli. His Xarelto will be held due to the potential for surgery; however, he will be placed on subcu heparin. 7. Peripheral neuropathy. The patient used to take gabapentin, but no longer. However, has continued to use his Cymbalta for this purpose, which we will continue during the hospital. 8. DVT prophylaxis. Subcu heparin until determination is made about possible surgery and then he may go back on his Xarelto. 9. Code status is full code. 10. Condition is fair. 11. Disposition: Admit OBV to [address] [place] [address]. TIME SPENT: Time spent on the patient is 60 minutes with 30 of that spent face to face. ANGELA MEJIA, GOLF PROFESSIONAL [id number]/[facility] #: [id number] [employer]
[2019-04-02] MEDS: Heparin VIAL(*) 5000 UNITS/ML VIAL (FIVE THOUSAND) SUBCUT SCH ×3 (04:27→22:27)
[2019-04-02] MEDS: ceFAZolin* 2 GM in NS 100 MLS Q8H (Pharmacy Admix) IVPB SCH ×3 (06:17→22:25)
[2019-04-02] MEDS: HYDROmorphone INJ* 0.5 MG/0.5 ML SYRINGE IV PRN ×2 (06:26→15:19)
[2019-04-02] MEDS: NS 0.9% 1000 ML** 1,000 ML IV SCH ×2 (07:00→13:41)
[2019-04-02 07:26] LABS: ABS Lymphocytes 0.7 10^3/ul (1.0-4.8); ABS Monocytes 0.6 10^3/ul (0-0.8); ABS Neutrophils 8.6 10^3/ul (1.5-7.7); Eosinophil % 0.1 %; Hematocrit 47 % (42-52); Hemoglobin 16.7 g/dL (14.0-18.0); Lymphocyte % 6.6 %; Mean Corpuscular HGB Conc 36 g/dL (31-36); Mean Corpuscular Hemoglobin 36 pg (27-31); Mean Corpuscular Volume 101 fL (80-94); Mean Platelet Volume 6.9 fL (7.4-10.4); Platelet Count 203 10^3/uL (150-450); Red Cell Distribution Width 13 % (10-15); White Blood Count 9.8 10^3/uL (3.5-10.8)
[2019-04-02 07:46] LABS: BUN/Creatinine Ratio 10.8 (8-20); Calcium 8.7 mg/dL (8.6-10.3); EGFR African American 88.4 (>60); EGFR Non-African American 73.1 (>60); Potassium 4.1 mmol/L (3.5-5.0)
[2019-04-02] MEDS: Insulin LISPRO* 1 UNITS UNIT SUBCUT SCH ×3 (08:25→17:36)
[2019-04-02] MEDS: DULoxetine DR CAP* 20 MG CAP.DR PO SCH ×2 (08:27→20:36)
[2019-04-02] MEDS: METHYLCELLULOSE PO SCH ×2 (08:27→19:24)
[2019-04-02] MEDS: [UNRECOGNIZED DRUG - OTHER] PO SCH ×2 (08:27→19:24)
[2019-04-02] MEDS: Multivitamins/Minerals TAB PO SCH (08:27)
[2019-04-02] MEDS: Pantoprazole IV* 40 MG IV SCH (08:27)
[2019-04-02] MEDS ORDERED: NS 0.9% 1000 ML** 1,000 ML IV ONE (08:35)
[2019-04-02] MEDS ORDERED: METHYLCELLULOSE PO SCH (09:00)
[2019-04-02] MEDS ORDERED: Ramipril CAP* 2.5 MG PO SCH (09:00)
[2019-04-02] MEDS ORDERED: [UNRECOGNIZED DRUG - OTHER] PO SCH (09:00)
[2019-04-02 09:04] LABS: Albumin/Globulin Ratio 1.7 (1-3); Globulin 2.4 g/dL (2-4); Indirect Bilirubin 1.5 mg/dL (0.3-1.0); Total Bilirubin 1.7 mg/dL (0.2-1.0); Total Protein 6.4 g/dL (6.4-8.9)
[2019-04-02] MEDS ORDERED: Acetaminophen TAB* 325 MG PO PRN (11:13)
[2019-04-02] MEDS ORDERED: oxyCODONE TAB* 5 MG TAB PO PRN (11:14)
--- NOTE | 2019-04-02 11:33 | PN ---
Subjective Date of Service: 04/02/19 Interval History: Patient feels his abdominal pain is significantly improved from admission. He denies nausea, chest pain, difficulty breathing. He mentions episode of chills earlier today. Has not had a BM since admission. Objective Active Medications: Dextrose (D50w Syringe 50 Ml*) 12.5 gm IV PUSH .FOR FS < 60 - SS PRN PRN Reason: FS < 60 Duloxetine HCl (Cymbalta Cap*) 40 mg PO BID [facility] Last Admin: 04/02/19 08:27 Dose: Not Given Heparin Sodium (Porcine) (Heparin Vial(*)) 5,000 units SUBCUT Q8HR [facility] Last Admin: 04/02/19 04:27 Dose: Not Given Hydromorphone HCl (Dilaudid Inj*) 0.5 mg IV Q4H PRN PRN Reason: PAIN - MODERATE Last Admin: 04/02/19 06:26 Dose: 0.5 mg Sodium Chloride (Ns 0.9% 1000 Ml) 1,000 mls @ 100 mls/hr IV PER RATE [facility] Last Admin: 04/02/19 07:00 Dose: 100 mls/hr Metronidazole/Sodium Chloride (Flagyl 500 Mg Ivpb*) 500 mg in 100 mls @ 100 mls /hr IVPB Q8H [facility] Last Admin: 04/02/19 08:31 Dose: 100 mls/hr Cefazolin Sodium 2 gm/ Sodium (Chloride) 100 mls @ 200 mls/hr IVPB Q8H [facility] Last Admin: 04/02/19 06:17 Dose: 200 mls/hr Insulin Human Lispro (Humalog*) 0 units SUBCUT AC [facility]; Protocol Last Admin: 04/02/19 08:25 Dose: Not Given Lovastatin (Mevacor (Nf)) 10 mg PO 1730 [facility]; Protocol Multivitamins/Minerals (Theragran/Minerals Tab*) 1 tab PO QAM [facility] Last Admin: 04/02/19 08:27 Dose: Not Given Non-Formulary Medication (Methylcellulose (With Sugar) [Citrucel Powder]) 1 tbsp PO BID [facility] Last Admin: 04/02/19 08:27 Dose: Not Given Ondansetron HCl (Zofran Inj*) 4 mg IV Q6H PRN PRN Reason: NAUSEA/VOMITING Pantoprazole Sodium (Protonix Iv*) 40 mg IV DAILY [facility] Last Admin: 04/02/19 08:27 Dose: Not Given Ramipril (Altace Cap*) 2.5 mg PO QAM [facility] Last Admin: 04/02/19 08:27 Dose: Not Given Tamsulosin HCl (Flomax Cap*) 0.4 mg PO BEDTIME [facility] Vital Signs - 8 hr 04/02/19 04/02/19 04/02/19 06:26 07:27 08:00 Temperature 97.7 F Pulse Rate 118 Respiratory 18 20 20 Rate Blood Pressure 105/74 (mmHg) O2 Sat by Pulse 93 Oximetry Oxygen Devices in Use Now: None Appearance: Obese, elderly white male, sitting up in bed, appearing comfortable and in NAD Eyes: No Scleral Icterus, - - PERRL Ears/Nose/Mouth/Throat: Mucous Membranes Moist Neck: Trachea Midline Respiratory: Symmetrical Chest Expansion and Respiratory Effort, Clear to Auscultation Cardiovascular: NL Sounds; No Murmurs; No JVD, RRR, - Abdominal: NL Sounds; No Tenderness; No Distention, - - no epigastric tenderness Extremities: No Edema, No Clubbing, Cyanosis Skin: No Rash or Ulcers Neurological: Alert and Oriented x 3 Result Diagrams: 04/02/19 07:11 04/02/19 07:11 Additional Lab and Data: Lab Results 04/01/19 Range/Units 15:31 INR (Anticoag Therapy) 1.26 H (0.82-1.09) Diagnostic Imaging: Abdominal Ultrasound: IMPRESSION: 1. THE GALLBLADDER IS DISTENDED WITH BOTH ADHERENT AND MOBILE ECHOGENIC MATERIAL. THIS COULD BE SLUDGE; HOWEVER, ATTENTION ON FOLLOW-UP CT FOR EVIDENCE OF ENHANCEMENT/ SOLID MASS. 2. NO INTRAEXTRA HEPATIC BILIARY DUCTAL DILATATION. 3. HEPATIC STEATOSIS. 4. PROBABLE FOCAL FATTY SPARING ALONG THE GALLBLADDER FOSSA (ATTENTION ON CT). CT abdomen/pelvis with contrast: IMPRESSION: 1. Suggested changes of possible acute cholecystitis which is not confirmed on the previous ultrasound. Consider followup HIDA scan. 2. Bosniak type I renal cyst. No followup indicated. Assess/Plan/Problems-Billing Assessment: 68 yo white male with PMHx colon CA, DMT2, HTN, PEs, BPH, GERD, LUE lymphedema presents with upper abdominal pain. - Patient Problems (1) Sepsis Current Visit: Yes Status: Acute Comment: -possibly secondary to acute cholecystitis -evaluating urinalysis and CXR -blood culture pending though will likely be of low utility given patient has already received broad spectrum abx (2) Abdominal pain Current Visit: Yes Status: Acute Code(s): R10.9 - UNSPECIFIED ABDOMINAL PAIN SNOMED Code(s): 51285945 Comment: -presumed acute cholecystitis -abdominal US and CT abd/pelvis results as above -HIDA scan shows delayed filling -appreciate general surgery consult -continue pain control -continue cefazolin and flagyl for presumed acute cholecystitis (3) Hypertension Current Visit: Yes Status: Acute Code(s): I10 - ESSENTIAL (PRIMARY) HYPERTENSION SNOMED Code(s): 94258658 Comment: -BP slowly downtrending and becoming more tachycardic, concerning for progressing sepsis; holding ramipril (4) Diabetes Current Visit: No Status: Acute Code(s): E11.9 - TYPE 2 DIABETES MELLITUS WITHOUT COMPLICATIONS SNOMED Code(s): 04988776 Comment: -diet controlled at home -will use lispro SS -carb consistent diet (5) History of pulmonary embolism Current Visit: Yes Status: Acute Code(s): Z86.711 - PERSONAL HISTORY OF PULMONARY EMBOLISM SNOMED Code(s): 132468255 Comment: -home xarelto on hold in anticipation of possible surgery (6) BPH (benign prostatic hyperplasia) Current Visit: Yes Status: Acute Code(s): N40.0 - BENIGN PROSTATIC HYPERPLASIA WITHOUT LOWER URINRY TRACT SYMP SNOMED Code(s): 667716358 Comment: -continue tamsulosin (7) GERD (gastroesophageal reflux disease) Current Visit: No Status: Acute Code(s): K21.9 - GASTRO-ESOPHAGEAL REFLUX DISEASE WITHOUT ESOPHAGITIS SNOMED Code(s): 475657964 Comment: -previous hx of GERD, has been taken of by PPI in the last several months without any reflux sxs (8) DVT prophylaxis Current Visit: Yes Status: Acute Code(s): Z29.9 - ENCOUNTER FOR PROPHYLACTIC MEASURES, UNSPECIFIED SNOMED Code(s): 418921187 Comment: -HSQ (9) Full code status Current Visit: Yes Status: Acute Code(s): Z78.9 - OTHER SPECIFIED HEALTH STATUS SNOMED Code(s): 409414256 Status and Disposition: inpatient pending further improvement
[2019-04-02] MEDS ORDERED: Tamsulosin CAP* 0.4 MG PO SCH (12:30)
--- NOTE | 2019-04-02 13:16 | CONS ---
CONSULTATION REPORT: DATE OF CONSULT: 04/02/19 REFERRING PROVIDER: Angela Mejia NP REASON FOR CONSULT: Epigastric abdominal pain. HISTORY OF PRESENT ILLNESS: Mr. Miguel Ángel Epperson is a 68-year-old gentleman with a past medical history significant for colon cancer with treatment of chemotherapy and radiation therapy, diabetes, history of bilateral pulmonary embolisms, hypertension, who presented to the emergency room last night after he developed some epigastric pain with nausea in a band-like distribution in his upper abdomen. It started early in the morning after he had eaten a normal meal and felt fine. He had no fevers, shakes, or chills. He had no pain up into the chest. He had no pain into the right back at all. When the pain worsened, he presented to the emergency room. He was noted to be afebrile and has been on his admission. He was noted to have a slightly elevated heart rate in the low 100s and 90s. Laboratory workup included a white blood cell count of 12, essentially normal electrolytes. A total bilirubin of 1.4 but normal transaminases. Lipase was unremarkable. He underwent both the CAT scan of his abdomen and ultrasound of his right upper quadrant. I did review both of these imaging studies. The ultrasound shows probable gallbladder sludge and/or some small stones but no gallbladder wall thickening, pericholecystic fluid or ductal dilation. CT scan also shows possibly very subtle change in the wall of the gallbladder, also some hyperemia along the liver bed effacing the gallbladder bed possibly consistent with cholecystitis. There was no fluid or other acute findings noted on the CT scan. He has been admitted to the hospitalist service and started on broad spectrum IV antibiotics. Today, his white blood cell count is normal. However, his bilirubin is up to 1.7 but appears to be mainly an indirect component. Of note, while he was undergoing evaluation for his colon cancer several years ago, I see that he underwent an ultrasound of his gallbladder which did show stones but no signs of inflammation. He had a normal HIDA scan with filling of the gallbladder. This was done for right upper quadrant abdominal pain. CT scan at that time was unremarkable. PAST MEDICAL HISTORY: 1. Lymphedema of the right upper extremity due to apparent DVT from a port. 2. Colorectal cancer with subsequent chemotherapy and radiation therapy. 3. Meniere's disease. 4. Diabetes type 2. 5. Hypertension. 6. History of pulmonary embolism in 2016. 7. Gastroesophageal reflux disease. 8. Hiatal hernia. 9. History of kidney stones. 10. Tendinitis in the left shoulder. 11. BPH. PAST SURGICAL HISTORY: 1. Bilateral inguinal hernias as a child. 2. Lower anterior resection 2016. 3. Left rotator cuff surgery. MEDICATIONS: Include: 1. Duloxetine. 2. Citrucel. 3. Lovastatin. 4. Rivaroxaban (Xarelto). 5. Tamsulosin. 6. Ramipril. ALLERGIES: He is allergic to PENICILLIN. FAMILY HISTORY: Denies any pertinent family history. He is adopted. SOCIAL HISTORY: He quit smoking in 1979. He rarely drinks any alcohol. 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 He denies recreational substance abuse. He is not and has no children. REVIEW OF SYSTEMS: A 12-point review of systems was performed. This showed epigastric discomfort. He had no chest pain, shortness of breath, and he had no wheezing. He had no urinary complaints. He had no diarrhea. All other portions of the review were unremarkable. PHYSICAL EXAM: Temperature 97.7, pulse 118, blood pressure 105/74. In general , he is an overweight male, appears to be in no apparent distress, quite alert, conversive and very pleasant. HEENT: Sclerae were anicteric. Oral mucosa is slightly dry. Lungs were clear to auscultation with normal respiratory effort. Heart was regular rate and rhythm, somewhat rapid. His abdomen is soft, slightly distended. He has laparoscopic incisions in the lower abdomen as well as very faint inguinal hernia scars. He has no tenderness. There is no organomegaly. There is no rebound, guarding or peritoneal irritation. Psychiatric: He is awake, alert, and oriented x3. He has normal judgment and insight. DIAGNOSTIC STUDIES/LAB DATA: Laboratory values this morning include a white blood cell count of 9.8. Liver transaminases today show total bilirubin of 1.7 with direct of 0.2 and indirect of 1.5. AST, ALT, and alkaline phosphatase are normal. IMPRESSION: Epigastric and upper abdominal discomfort with rather sudden onset yesterday. Workup as per above. He has a history of gallstones but there may appear to be sludge. The ultrasound shows no gallbladder wall thickening or pericholecystic fluid or ductal dilation; while the CT scan may show a faint wall thickening with some enhancement of the liver bed along the gallbladder which can be consistent with acute cholecystitis. I suspect that his discomfort was most likely due to this gallstone and I suspect there is a low level acute cholecystitis. His white blood cell count is normalized today and he is feeling much better. He has an excellent appetite. The HIDA scan has been scheduled. I would recommend continue now with the IV antibiotics and await the HIDA scan. He is on Xarelto and recommendations are for that to be held between 2 and 3 days depending on the risk of bleeding at surgery and he did not take a dose yesterday. We tentatively plan to continue with IV antibiotics with surgery on Thursday during regular scheduled time as he appears to be improving on antibiotics at this point. Thank you for this consultation. We will follow him closely with you. [id number]/CPS #: [id number] XENA
[2019-04-02] MEDS: CMC:Lovastatin (NF) 10 MG TAB PO SCH (16:38)
[2019-04-02] MEDS: Tamsulosin CAP* 0.4 MG PO SCH (20:36)
[2019-04-03 04:00] LABS: Urine Appearance Clear; Urine Bilirubin Negative (Negative); Urine Blood Negative (Negative); Urine Color Yellow; Urine Glucose Negative (Negative); Urine Ketones 1+ (Negative); Urine Nitrite Negative (Negative); Urine Protein Negative (Negative); Urine Specific Gravity 1.023 (1.010-1.030); Urine Urobilinogen Negative (Negative)
[2019-04-03] MEDS: oxyCODONE TAB* 5 MG TAB PO PRN ×2 (05:45→09:57)
[2019-04-03] MEDS: Heparin VIAL(*) 5000 UNITS/ML VIAL (FIVE THOUSAND) SUBCUT SCH ×3 (05:46→22:41)
[2019-04-03 06:03] LABS: Albumin 3.7 g/dL (3.2-5.2); Albumin/Globulin Ratio 1.6 (1-3); BUN/Creatinine Ratio 14.3 (8-20); Calcium 8.5 mg/dL (8.6-10.3); EGFR African American 110.6 (>60); EGFR Non-African American 91.4 (>60); Globulin 2.3 g/dL (2-4); Indirect Bilirubin 1.5 mg/dL (0.3-1.0); Potassium 3.8 mmol/L (3.5-5.0); Total Bilirubin 1.8 mg/dL (0.2-1.0)
[2019-04-03 06:32] LABS: ABS Eosinophils 0.1 10^3/ul (0-0.6); ABS Lymphocytes 1.1 10^3/ul (1.0-4.8); Eosinophil % 0.6 %; Hematocrit 41 % (42-52); Hemoglobin 14.3 g/dL (14.0-18.0); Lymphocyte % 11.5 %; Mean Corpuscular HGB Conc 35 g/dL (31-36); Mean Corpuscular Hemoglobin 36 pg (27-31); Mean Corpuscular Volume 103 fL (80-94); Mean Platelet Volume 7.2 fL (7.4-10.4); Platelet Count 141 10^3/uL (150-450); Red Blood Count 3.95 10^6 /uL (4.18-5.48); Red Cell Distribution Width 13 % (10-15); White Blood Count 9.2 10^3/uL (3.5-10.8)
[2019-04-03] MEDS: Pantoprazole IV* 40 MG IV SCH (08:29)
[2019-04-03] MEDS: ceFAZolin* 2 GM in NS 100 MLS Q8H (Pharmacy Admix) IVPB SCH ×3 (08:29→22:43)
[2019-04-03] MEDS: DULoxetine DR CAP* 20 MG CAP.DR PO SCH ×2 (08:29→21:42)
[2019-04-03] MEDS: Multivitamins/Minerals TAB PO SCH (08:30)
[2019-04-03] MEDS: Insulin LISPRO* 1 UNITS UNIT SUBCUT SCH ×3 (08:30→17:32)
[2019-04-03] MEDS: metroNIDAZOLE IV 500 MG/100ML* 500 MG/100 ML BAG IVPB SCH ×3 (09:55→23:53)
[2019-04-03] MEDS: METHYLCELLULOSE PO SCH ×2 (10:04→22:41)
[2019-04-03] MEDS: [UNRECOGNIZED DRUG - OTHER] PO SCH ×2 (10:04→22:41)
--- NOTE | 2019-04-03 10:12 | PN ---
Progress Note - Progress Note Date of Service: 04/03/19 SOAP: Subjective: Feels much better No abdominal pain, N/V Tolerated liquids yesterday Objective: Temp Pulse Resp BP Pulse Ox 97.6 F 88 18 115/73 93 04/03/19 07:59 04/03/19 07:59 04/03/19 07:59 04/03/19 07:59 04/03/19 07:59 Intake & Output 04/01/19 04/02/19 04/03/19 04/04/19 06:59 06:59 06:59 06:59 Intake Total 2525 2060 Output Total 550 Balance 2525 1510 Weight 215 lb 1.6 oz Intake: IV Fluids 2300 1000 IVPB 225 320 Oral 0 740 Output: Urine 550 Other: Estimated Void Small Medium # Bowel Movements 0 # Voids 2 1 PEX: Comfortable ABD is slightly distended, no tenderness or mass, no guarding Bowel sounds are present. Laboratory Results - last 24 hr 04/02/19 04/02/19 04/03/19 13:41 16:24 03:40 WBC RBC Hgb Hct MCV MCH MCHC RDW Plt Count MPV Neut % (Auto) Lymph % (Auto) [place] % (Auto) Eos % (Auto) Baso % (Auto) Absolute Neuts (auto) Absolute Lymphs (auto) Absolute Monos (auto) Absolute Eos (auto) Absolute Basos (auto) Absolute Nucleated RBC Nucleated RBC % Sodium Potassium Chloride Carbon Dioxide Anion Gap BUN Creatinine Est GFR ( Amer) Est GFR (Non-Af Amer) BUN/Creatinine Ratio Glucose POC Glucose (mg/dL) 152 H 152 H Calcium Total Bilirubin Direct Bilirubin Indirect Bilirubin AST ALT Alkaline Phosphatase Total Protein Albumin Globulin Albumin/Globulin Ratio Urine Color Yellow Urine Appearance Clear Urine pH 5.0 Ur Specific [place] 1.023 Urine Protein Negative Urine Ketones 1+ A Urine Blood Negative Urine Nitrate Negative Urine Bilirubin Negative Urine Urobilinogen Negative Ur Leukocyte Esterase Negative Urine Glucose Negative Urine Ascorbic Acid * A 04/03/19 04/03/19 04/03/19 05:42 06:14 07:57 WBC 9.2 RBC 3.95 L Hgb 14.3 Hct 41 L MCV 103 H MCH 36 H MCHC 35 RDW 13 Plt Count 141 L MPV 7.2 L Neut % (Auto) 76.4 Lymph % (Auto) 11.5 Swift % (Auto) 11.4 Eos % (Auto) 0.6 Baso % (Auto) 0.1 Absolute Neuts (auto) 7.0 Absolute Lymphs (auto) 1.1 Absolute Monos (auto) 1.0 H Absolute Eos (auto) 0.1 Absolute Basos (auto) 0.0 Absolute Nucleated RBC 0.0 Nucleated RBC % 0.0 Sodium 133 L Potassium 3.8 Chloride 105 Carbon Dioxide 21 L Anion Gap 7 BUN 12 Creatinine 0.84 Est GFR ( Amer) 110.6 Est GFR (Non-Af Amer) 91.4 BUN/Creatinine Ratio 14.3 Glucose 143 H POC Glucose (mg/dL) 157 H Calcium 8.5 L Total Bilirubin 1.80 H Direct Bilirubin 0.30 H Indirect Bilirubin 1.5 H AST 25 ALT 16 Alkaline Phosphatase 58 Total Protein 6.0 L Albumin 3.7 Globulin 2.3 Albumin/Globulin Ratio 1.6 Urine Color Urine Appearance Urine pH Ur Specific [place] Urine Protein Urine Ketones Urine Blood Urine Nitrate Urine Bilirubin Urine Urobilinogen Ur Leukocyte Esterase Urine Glucose Urine Ascorbic Acid HIDA scan 04/02 reviewed: Delayed filling of GB at three hours consistent with possible acute or chronic calculous cholecystitis Assessment: Acute on chronic cholecystitis Mild elevation of TBili-suspect secondary to GB inflammation Normal WBC, no fever, tolerating po Discussed findings with patient. I think his discomfort was secondary to gallbladder inflammation and he would benefit from cholecystectomy. He is now 48 hours off his Xarelto and to avoid recurrence of symptoms, recommend proceeding with surgery tomorrow. We discussed treatment with antibiotics ( which he seems to be responding to) to avoid surgery this admission, but he has increased risk of recurrence and will have to deal with anticoagulation in the future and he seems optimized for surgery this admission. He would like to proceed with surgery tomorrow. Surgery will be either robotic or laparoscopic depending on OR scheduling and availability. Risks, benefits and alternatives to surgery all discussed. Plan: Continue IV abx NPO after MN Continue to hold Xarelto Hold heparin after last dose today OR 04/04
[2019-04-03] MEDS: HYDROmorphone INJ* 0.5 MG/0.5 ML SYRINGE IV PRN (12:56)
[2019-04-03] MEDS ORDERED: Ketorolac INJ* 30 MG/ML 1 ML VIAL IV PUSH ONE (13:58)
[2019-04-03] MEDS ORDERED: Senna TAB 8.6 mg* TAB PO PRN (14:02)
--- NOTE | 2019-04-03 14:04 | PN ---
Subjective Date of Service: 04/03/19 Interval History: Patient's primary complaint today is L shoulder. He has known pain to this shoulder due to prior injury. Follows with ortho about this. Complains that there has been lots of manipulation of his shoulder by staff causing pain to be worse than usual. Abdominal pain is well controlled. Denies fever/chills, difficulty breathing, chest pain, nausea. Objective Active Medications: Acetaminophen (Tylenol Tab*) 650 mg PO Q4H PRN PRN Reason: PAIN - MILD Dextrose (D50w Syringe 50 Ml*) 12.5 gm IV PUSH .FOR FS < 60 - SS PRN PRN Reason: FS < 60 Duloxetine HCl (Cymbalta Cap*) 40 mg PO BID [facility] Last Admin: 04/03/19 08:29 Dose: 40 mg Heparin Sodium (Porcine) (Heparin Vial(*)) 5,000 units SUBCUT Q8HR [facility] Stop: 04/04/19 00:01 Last Admin: 04/03/19 05:46 Dose: 5,000 units Hydromorphone HCl (Dilaudid Inj*) 0.5 mg IV Q4H PRN PRN Reason: pain - severe breakthrough Last Admin: 04/03/19 12:56 Dose: 0.5 mg Metronidazole/Sodium Chloride (Flagyl 500 Mg Ivpb*) 500 mg in 100 mls @ 100 mls /hr IVPB Q8H [facility] Last Admin: 04/03/19 09:55 Dose: 100 mls/hr Cefazolin Sodium 2 gm/ Sodium (Chloride) 100 mls @ 200 mls/hr IVPB Q8H [facility] Last Admin: 04/03/19 08:29 Dose: 200 mls/hr Insulin Human Lispro (Humalog*) 0 units SUBCUT AC [facility]; Protocol Last Admin: 04/03/19 12:51 Dose: 2 units Ketorolac Tromethamine (Toradol Inj*) 30 mg IV PUSH ONCE ONE Stop: 04/03/19 13:59 Lovastatin (Mevacor (Nf)) 10 mg PO 1730 [facility]; Protocol Last Admin: 04/02/19 16:38 Dose: 10 mg Multivitamins/Minerals (Theragran/Minerals Tab*) 1 tab PO QAM [facility] Last Admin: 04/03/19 08:30 Dose: 1 tab Non-Formulary Medication (Methylcellulose (With Sugar) [Citrucel Powder]) 1 tbsp PO BID [facility] Last Admin: 04/03/19 10:04 Dose: Not Given Ondansetron HCl (Zofran Inj*) 4 mg IV Q6H PRN PRN Reason: NAUSEA/VOMITING Oxycodone HCl (Roxycodone Tab*) 5 mg PO Q4H PRN PRN Reason: PAIN - MODERATE Oxycodone HCl (Roxycodone Tab*) 10 mg PO Q4H PRN PRN Reason: PAIN - SEVERE Last Admin: 04/03/19 09:57 Dose: 10 mg Pantoprazole Sodium (Protonix Iv*) 40 mg IV DAILY [facility] Last Admin: 04/03/19 08:29 Dose: 40 mg Tamsulosin HCl (Flomax Cap*) 0.4 mg PO BEDTIME [facility] Last Admin: 04/02/19 20:36 Dose: 0.4 mg Vital Signs - 8 hr 04/03/19 04/03/19 04/03/19 07:59 08:04 09:57 Temperature 97.6 F Pulse Rate 88 Respiratory 18 16 18 Rate Blood Pressure 115/73 (mmHg) O2 Sat by Pulse 93 Oximetry 04/03/19 04/03/19 11:51 12:56 Temperature 98.1 F Pulse Rate 83 Respiratory 20 16 Rate Blood Pressure 110/66 (mmHg) O2 Sat by Pulse 95 Oximetry Oxygen Devices in Use Now: None Appearance: Obese, elderly white male, laying in bed, appearing comfortable and in NAD Eyes: No Scleral Icterus, - - PERRL Ears/Nose/Mouth/Throat: Mucous Membranes Moist Neck: Trachea Midline Respiratory: Symmetrical Chest Expansion and Respiratory Effort, Clear to Auscultation Cardiovascular: NL Sounds; No Murmurs; No JVD, RRR Abdominal: NL Sounds; No Tenderness; No Distention, - - no epigastric pain Extremities: No Edema, No Clubbing, Cyanosis Skin: No Rash or Ulcers Neurological: Alert and Oriented x 3 Result Diagrams: 04/03/19 06:14 04/03/19 05:42 Additional Lab and Data: Lab Results 04/01/19 Range/Units 15:31 INR (Anticoag Therapy) 1.26 H (0.82-1.09) Diagnostic Imaging: Abdominal Ultrasound: IMPRESSION: 1. THE GALLBLADDER IS DISTENDED WITH BOTH ADHERENT AND MOBILE ECHOGENIC MATERIAL. THIS COULD BE SLUDGE; HOWEVER, ATTENTION ON FOLLOW-UP CT FOR EVIDENCE OF ENHANCEMENT/ SOLID MASS. 2. NO INTRAEXTRA HEPATIC BILIARY DUCTAL DILATATION. 3. HEPATIC STEATOSIS. 4. PROBABLE FOCAL FATTY SPARING ALONG THE GALLBLADDER FOSSA (ATTENTION ON CT). CT abdomen/pelvis with contrast: IMPRESSION: 1. Suggested changes of possible acute cholecystitis which is not confirmed on the previous ultrasound. Consider followup HIDA scan. 2. Bosniak type I renal cyst. No followup indicated. Assess/Plan/Problems-Billing Assessment: 68 yo white male with PMHx colon CA, DMT2, HTN, PEs, BPH, GERD, LUE lymphedema presents with upper abdominal pain. - Patient Problems (1) Sepsis Current Visit: Yes Status: Acute Comment: -likely secondary to acute cholecystitis, mgmt as below -SIRS criteria resolved -blood culture unfortunately drawn after IV abx started, pending (2) Abdominal pain Current Visit: Yes Status: Acute Code(s): R10.9 - UNSPECIFIED ABDOMINAL PAIN SNOMED Code(s): 36569404 Comment: -presumed acute cholecystitis -abdominal US and CT abd/pelvis results as above -HIDA scan shows delayed filling, consistent with either chronic or acute cholecystitis; considering abdominal pain presented with sudden onset appears less likely chronic -appreciate general surgery consult; plan for lap popeye tomorrow -continue pain control -continue cefazolin and flagyl (3) Hypertension Current Visit: Yes Status: Acute Code(s): I10 - ESSENTIAL (PRIMARY) HYPERTENSION SNOMED Code(s): 22351387 Comment: -holding ramipril due to mild hypotension yesterday (4) Diabetes Current Visit: No Status: Acute Code(s): E11.9 - TYPE 2 DIABETES MELLITUS WITHOUT COMPLICATIONS SNOMED Code(s): 90434771 Comment: -diet controlled at home -will use lispro SS -carb consistent diet (5) History of pulmonary embolism Current Visit: Yes Status: Acute Code(s): Z86.711 - PERSONAL HISTORY OF PULMONARY EMBOLISM SNOMED Code(s): 619642666 Comment: -home xarelto on hold in anticipation of surgery (6) BPH (benign prostatic hyperplasia) Current Visit: Yes Status: Acute Code(s): N40.0 - BENIGN PROSTATIC HYPERPLASIA WITHOUT LOWER URINRY TRACT SYMP SNOMED Code(s): 596030594 Comment: -continue tamsulosin (7) GERD (gastroesophageal reflux disease) Current Visit: No Status: Acute Code(s): K21.9 - GASTRO-ESOPHAGEAL REFLUX DISEASE WITHOUT ESOPHAGITIS SNOMED Code(s): 836205636 Comment: -previous hx of GERD, has been taken off of PPI by PCP in the last several months without any reflux sxs (8) Left shoulder pain Current Visit: Yes Status: Acute Code(s): M25.512 - PAIN IN LEFT SHOULDER SNOMED Code(s): 97071967 Comment: -known left shoulder ligamentous tears, demonstrated on Nov 2018 MRI -followed outpatient by ortho -continue pain control, adding one dose toradol today (9) Elevated bilirubin Current Visit: Yes Status: Acute Code(s): R17 - UNSPECIFIED JAUNDICE SNOMED Code(s): 76305766 Comment: -primarily indirect bili; no transaminitis -frequently has elevated indirect bili during hospitalization; 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
[2019-04-03] MEDS: CMC:Lovastatin (NF) 10 MG TAB PO SCH (17:31)
[2019-04-03] MEDS: Tamsulosin CAP* 0.4 MG PO SCH (21:43)
[2019-04-04] MEDS: ceFAZolin* 2 GM in NS 100 MLS Q8H (Pharmacy Admix) IVPB SCH ×3 (05:53→22:24)
[2019-04-04] MEDS ORDERED: NS 0.9% 1000 ML** 1,000 ML IV SCH (06:00)
[2019-04-04] MEDS: DULoxetine DR CAP* 20 MG CAP.DR PO SCH ×2 (09:03→22:18)
[2019-04-04] MEDS: Insulin LISPRO* 1 UNITS UNIT SUBCUT SCH ×3 (09:03→17:02)
[2019-04-04] MEDS: [UNRECOGNIZED DRUG - OTHER] PO SCH ×2 (09:04→23:09)
[2019-04-04] MEDS: Multivitamins/Minerals TAB PO SCH (09:04)
[2019-04-04] MEDS: METHYLCELLULOSE PO SCH ×2 (09:04→23:09)
[2019-04-04] MEDS: metroNIDAZOLE IV 500 MG/100ML* 500 MG/100 ML BAG IVPB SCH ×3 (09:08→23:17)
[2019-04-04] MEDS: Pantoprazole IV* 40 MG IV SCH (09:08)
[2019-04-04] MEDS ORDERED: Famotidine IV* 10 MG/ML 2 ML (20 mg) IV ONE (10:00)
[2019-04-04] MEDS ORDERED: Lactated Ringers 1000 ML Bag* 1,000 ML IV SCH (10:00)
[2019-04-04] MEDS ORDERED: DiMENhydriNATE IV* 50 MG/ML VIAL IV PUSH ONE (10:00)
[2019-04-04] MEDS ORDERED: Buffered Lidocaine 1% SYRIN* 1 ML/SYRINGE INTRADERM ONE (10:00)
[2019-04-04] MEDS ORDERED: Midazolam* 1 MG/ML 2 ML VIAL (2 MG) ONE (11:12)
[2019-04-04] MEDS ORDERED: Rocuronium* 10 MG/ML VIAL ONE ×2 (11:12→12:46)
[2019-04-04] MEDS ORDERED: fentaNYL* 50 MCG/ML 2 ML VIAL (100 MCG VIAL) ONE ×2 (11:12→12:53)
[2019-04-04] MEDS ORDERED: Bupivacaine 0.5% W/EPI SDV* 30 ML VIAL ONE (11:53)
[2019-04-04] MEDS ORDERED: Naloxone* 0.4 MG/ML 1 ML VIAL IV PRN (11:55)
[2019-04-04] MEDS ORDERED: ceFAZolin 2 GM in NS PREMIX(*) 2 GM/100 ML BAG IVPB ONE (12:16)
--- NOTE | 2019-04-04 12:35 | PN ---
Subjective Date of Service: 04/04/19 Interval History: Improving abd pain.NPO for aditi nye today Family History: Unchanged from Admission Social History: Unchanged from Admission Past Medical History: Unchanged from Admission Objective Active Medications: Acetaminophen (Tylenol Tab*) 650 mg PO Q4H PRN PRN Reason: PAIN - MILD Dextrose (D50w Syringe 50 Ml*) 12.5 gm IV PUSH .FOR FS < 60 - SS PRN PRN Reason: FS < 60 Dimenhydrinate (Dramamine Iv*) 25 mg IV PUSH ONCE ONE Stop: 04/04/19 10:01 Duloxetine HCl (Cymbalta Cap*) 40 mg PO BID [facility] Last Admin: 04/04/19 09:03 Dose: Not Given Famotidine (Pepcid Iv*) 20 mg IV ONCE ONE Stop: 04/04/19 10:01 Hydromorphone HCl (Dilaudid Inj*) 0.5 mg IV Q4H PRN PRN Reason: pain - severe breakthrough Last Admin: 04/03/19 12:56 Dose: 0.5 mg Hydromorphone HCl (Dilaudid Inj1s*) 0.5 mg IV Q10M PRN PRN Reason: PAIN - SEVERE Metronidazole/Sodium Chloride (Flagyl 500 Mg Ivpb*) 500 mg in 100 mls @ 100 mls /hr IVPB Q8H [facility] Last Admin: 04/04/19 09:08 Dose: 100 mls/hr Cefazolin Sodium 2 gm/ Sodium (Chloride) 100 mls @ 200 mls/hr IVPB Q8H [facility] Last Admin: 04/04/19 05:53 Dose: 200 mls/hr Sodium Chloride (Ns 0.9% 1000 Ml) 1,000 mls @ 100 mls/hr IV PER RATE [facility] Lactated Ringer's (Lactated Ringers 1000 Ml Bag*) 1,000 mls @ 125 mls/hr IV PER RATE [facility] Insulin Human Lispro (Humalog*) 0 units SUBCUT AC [facility]; Protocol Last Admin: 04/04/19 09:03 Dose: Not Given Lidocaine/Sodium Bicarbonate (Buffered Lidocaine 1% Syrin*) 0.2 ml INTRADERM ONCE ONE Stop: 04/04/19 10:01 Lovastatin (Mevacor (Nf)) 10 mg PO 1730 [facility]; Protocol Last Admin: 04/03/19 17:31 Dose: 10 mg Multivitamins/Minerals (Theragran/Minerals Tab*) 1 tab PO QAM [facility] Last Admin: 04/04/19 09:04 Dose: Not Given Naloxone HCl (Narcan*) 0.08 mg IV Q2M PRN PRN Reason: severe induced resp depression Non-Formulary Medication (Methylcellulose (With Sugar) [Citrucel Powder]) 1 tbsp PO BID [facility] Last Admin: 04/04/19 09:04 Dose: Not Given Ondansetron HCl (Zofran Inj*) 4 mg IV Q6H PRN PRN Reason: NAUSEA/VOMITING Oxycodone HCl (Roxycodone Tab*) 5 mg PO Q4H PRN PRN Reason: PAIN - MODERATE Oxycodone HCl (Roxycodone Tab*) 10 mg PO Q4H PRN PRN Reason: PAIN - SEVERE Last Admin: 04/03/19 09:57 Dose: 10 mg Pantoprazole Sodium (Protonix Iv*) 40 mg IV DAILY [facility] Last Admin: 04/04/19 09:08 Dose: 40 mg Senna (Senokot 8.6 Mg Tab*) 2 tab PO BEDTIME PRN PRN Reason: CONSTIPATION Tamsulosin HCl (Flomax Cap*) 0.4 mg PO BEDTIME [facility] Last Admin: 04/03/19 21:43 Dose: 0.4 mg Vital Signs - 8 hr 04/04/19 04/04/19 07:30 08:00 Temperature 98 F Pulse Rate 91 Respiratory 16 16 Rate Blood Pressure 130/80 (mmHg) O2 Sat by Pulse 94 Oximetry Oxygen Devices in Use Now: None Eyes: No Scleral Icterus Ears/Nose/Mouth/Throat: NL Teeth, Lips, Gums Neck: NL Appearance and Movements; NL JVP Respiratory: Symmetrical Chest Expansion and Respiratory Effort Cardiovascular: NL Sounds; No Murmurs; No JVD Abdominal: - - pain RUQ no rebound no guarding Extremities: No Edema Neurological: Alert and Oriented x 3 Result Diagrams: 04/03/19 06:14 04/03/19 05:42 Additional Lab and Data: Lab Results 04/01/19 Range/Units 15:31 INR (Anticoag Therapy) 1.26 H (0.82-1.09) Microbiology and Other Data: Microbiology 04/03/19 05:42 Aerobic Blood Culture - Preliminary Blood Venous No Growth Day 1 Anaerobic Blood Culture - Preliminary No Growth Day 1 04/02/19 16:47 Blood Culture - Preliminary Blood Venous No Growth Day 1 Diagnostic Imaging: Abdominal Ultrasound: IMPRESSION: 1. THE GALLBLADDER IS DISTENDED WITH BOTH ADHERENT AND MOBILE ECHOGENIC MATERIAL. THIS COULD BE SLUDGE; HOWEVER, ATTENTION ON FOLLOW-UP CT FOR EVIDENCE OF ENHANCEMENT/ SOLID MASS. 2. NO INTRAEXTRA HEPATIC BILIARY DUCTAL DILATATION. 3. HEPATIC STEATOSIS. 4. PROBABLE FOCAL FATTY SPARING ALONG THE GALLBLADDER FOSSA (ATTENTION ON CT). CT abdomen/pelvis with contrast: IMPRESSION: 1. Suggested changes of possible acute cholecystitis which is not confirmed on the previous ultrasound. Consider followup HIDA scan. 2. Bosniak type I renal cyst. No followup indicated. Assess/Plan/Problems-Billing Assessment: 68 yo white male with PMHx colon CA, DMT2, HTN, PEs, BPH, GERD, LUE lymphedema presents with upper abdominal pain. - Patient Problems (1) Sepsis Current Visit: Yes Status: Acute Comment: - secondary to acute cholecystitis, mgmt as below -SIRS criteria resolved -blood culture unfortunately drawn after IV abx started, pending (2) Abdominal pain Current Visit: Yes Status: Acute Code(s): R10.9 - UNSPECIFIED ABDOMINAL PAIN SNOMED Code(s): 03247304 Comment: - acute cholecystitis -abdominal US and CT abd/pelvis results as above -HIDA scan shows delayed filling, consistent with either chronic or acute cholecystitis; -clinical symptoms c/w acute cholecystitis -appreciate general surgery consult; plan for lap popeye today -continue pain control -continue cefazolin and flagyl -Consider PO Cipro and Flagyl post surgery as warranted -Will continue Cefazolin in the periop period to cover gram positives as well (3) Acute cholecystitis Current Visit: Yes Status: Acute Code(s): K81.0 - ACUTE CHOLECYSTITIS SNOMED Code(s): 61769961 Comment: see above antibiotics plus popeye appreciate surgery input (4) History of pulmonary embolism Current Visit: Yes Status: Acute Code(s): Z86.711 - PERSONAL HISTORY OF PULMONARY EMBOLISM SNOMED Code(s): 740883256 Comment: -home xarelto on hold in anticipation of surgery (5) Hypertension Current Visit: Yes Status: Acute Code(s): I10 - ESSENTIAL (PRIMARY) HYPERTENSION SNOMED Code(s): 19222558 Comment: -holding ramipril due to mild hypotension yesterday (6) Diabetes Current Visit: No Status: Acute Code(s): E11.9 - TYPE 2 DIABETES MELLITUS WITHOUT COMPLICATIONS SNOMED Code(s): 73189049 Comment: -diet controlled at home -will use lispro SS -carb consistent diet (7) BPH (benign prostatic hyperplasia) Current Visit: Yes Status: Acute Code(s): N40.0 - BENIGN PROSTATIC HYPERPLASIA WITHOUT LOWER URINRY TRACT SYMP SNOMED Code(s): 366320597 Comment: -continue tamsulosin (8) DVT prophylaxis Current Visit: Yes Status: Acute Code(s): Z29.9 - ENCOUNTER FOR PROPHYLACTIC MEASURES, UNSPECIFIED SNOMED Code(s): 253342060 Comment: -HSQ - on hold for surgery
[2019-04-04] MEDS ORDERED: Lidocaine 2% PF * 5 ML VIAL ONE (12:46)
[2019-04-04] MEDS ORDERED: Propofol* 10 MG/ML 20 ML BTL ONE (12:46)
[2019-04-04] MEDS ORDERED: Ondansetron INJ* 2 MG/ML VIAL ONE (12:46)
[2019-04-04] MEDS ORDERED: Dexamethasone IV* 4 MG/ML 1 ML (4 MG) ONE (12:46)
[2019-04-04] MEDS ORDERED: Phenylephrine 40 MCG/ML SYRINGE ONE (12:50)
[2019-04-04 13:46] LABS: Activated Partial Thrombo Time 34.2 seconds (26.0-38.0); INR 1.33 (0.82-1.09)
[2019-04-04] MEDS ORDERED: Sugammadex * 200 MG/2 ML VIAL IV PUSH ONE (13:58)
--- NOTE | 2019-04-04 14:28 | BRIEFOPN ---
Brief Operative/Procedure Note - Operation Details Pre-Op Diagnosis: Cholecystitis Post-Op Diagnosis: Cholecystitis Procedures: Laparoscopic cholecystectomy Surgeon(s)/Proceduralists: Dr. Rosales. Assist: LEON Gandhi Anesthesia: GETA. IVF 2 liters Estimated Blood Loss: <50cc Findings: As above Specimen(s)/Culture(s) Description: Gallbladder Complications: None
[2019-04-04] MEDS ORDERED: HYDROmorphone INJ1* 1 MG/ML SYRINGE ONE (15:15)
[2019-04-04] MEDS: HYDROmorphone INJ1* 1 MG/ML SYRINGE IV PRN ×2 (15:18→15:41)
[2019-04-04] MEDS: CMC:Lovastatin (NF) 10 MG TAB PO SCH (17:02)
[2019-04-04] MEDS: HYDROmorphone INJ* 0.5 MG/0.5 ML SYRINGE IV PRN ×2 (17:02→22:18)
[2019-04-04] MEDS: oxyCODONE TAB* 5 MG TAB PO PRN (19:37)
[2019-04-04] MEDS: Tamsulosin CAP* 0.4 MG PO SCH (22:18)
--- NOTE | 2019-04-04 23:04 | OP ---
CC: Primary Care Doctor; Dr. Cesar Jaffe; [facility] Cardiology * DATE OF OPERATION: 04/04/19 - ROOM #412 DATE OF : 54 SURGEON: James Rosales MD SCHOOL AIDE: LEON Her ANESTHESIOLOGIST: Dr. Shafer. ANESTHESIA: General. PRE-OP DIAGNOSIS: Acute cholecystitis. POST-OP DIAGNOSIS: Acute cholecystitis. OPERATIVE PROCEDURE: Laparoscopic cholecystectomy. ESTIMATED BLOOD LOSS: 150 cc blood loss. IV FLUIDS: 1 L of IV fluid given. SPECIMEN: Gallbladder with contents. DRAINS: #10 CHICHO drain left in Smith's pouch. COMPLICATIONS: None. DESCRIPTION OF PROCEDURE: I introduced myself to Mr. Epperson in the preoperative area. I discussed the case with Dr. Sears and reviewed the chart. I understood the diagnosis and agreed with acute cholecystitis and recommended laparoscopic cholecystectomy. I outlined the details of the procedure going over the risks, benefits, and alternatives of laparoscopic cholecystectomy and the patient wished to proceed. We spoke about the possible complications which included, but not limited to bleeding, infection, bile leak, bile duct injury, retained common bile duct stones, need for open procedure or additional procedures. The patient's questions were answered and consent was signed and he was marked. The patient was taken to the operating room and placed on the operating room table in supine position. Preoperative antibiotics were given. Sequential devices were placed on bilateral lower extremities. General anesthesia was induced. The patient's abdomen was prepped and draped in a standard surgical fashion after clipping hair and a time-out was performed. Folds of the umbilicus were elevated anteriorly and a Veress needle inserted into the abdominal cavity, which was then allowed to insufflate to a pressure of 15 mmHg. The patient tolerated insufflation well. A 12 mm optical trocar was then inserted periumbilically and review of the abdomen showed no bleeding. The Veress needle was intact and did not injure any structures and then was removed. Additional trocars were then placed in following position: A 12 mm in the subxiphoid area and two 5 mm along the right costal margin. Table was repositioned to neutral. Reviewed the gallbladder which was significantly inflamed and taut and difficult to grasp and proceeded to aspirate this. This was aspirated with a needle taking approximately 20 cc of thick bile off. When the needle was removed, we attempted to grasp this site, the gallbladder wall which showed some pockets of gangrene, broke open and fell apart. Bile was drained from this along with a couple of stones, but we were able to grasp just inferior to this hole and hold it anteriorly. The edges of the hole bled and hemostasis was achieved with the LigaSure device. Next, we turned our attention to the infundibular region of the gallbladder. This was significantly inflamed and we proceeded to take the peritoneum off the lateral aspect of the gallbladder. All spots would bleed significantly as we were doing this as the oozing came from all dissected areas. The medial aspect was taken similarly with the hook cautery to take the peritoneum. At this point , I made a decision to take the gallbladder from the top down since this I could not feel the appreciated critical view given the bleeding and oozing from the dissection at this site. Two 4 x 8 gauzes were then placed at our initial dissected areas what we felt was the infundibular region of the gallbladder and left at that side and we turned our attention to the mid portion of the gallbladder. We dissected around the gallbladder properly. A back wall showed signs of gangrene, but no pus. Once we were able to do this, we could dissect to the distal aspect of the gallbladder until it was completely removed from the gallbladder fossa at the body portion and the fundus. Next, with traction towards the right lower quadrant, we were able to bluntly dissect down to where we could see only one structure coming up to the gallbladder. A window was made at this structure and the additional areas were ligated with LigaSure device and it appeared to be possibly a vessel versus just inflamed tissue, but I thought that this was safe tissue. With the one structure isolated at this point, we then placed 2 clips and a cut above it. A small duct was seen upon cutting, and we felt comfortable that we had the single cystic duct and then the gallbladder which did break the trapezius by this point. We then placed an endoscopic retrieval bag and brought out through the subxiphoid port site. We had already removed couple of large stones with the stone forceps. Next, we proceeded to suction out the blood. The oozing at this point did not seem to be significant. We were able to remove our gauze and place another gauze inside and held pressure. Review of the gallbladder fossa showed no gallbladder wall remaining, felt we did got the full gangrenous posterior wall. Next, Surgicel was then placed at the area of the cystic duct stump where we had our initial oozing and pressure held at the site where we placed a #10 CHICHO drain and this was brought out to the left lateral most port site and sutured to the skin with 3-0 Prolene suture. The gauze and Surgicel was removed. Hemostasis was excellent. We then dropped the CHICHO drain in the appropriate place , extending from the gallbladder fossa up towards the diaphragm. The patient was placed back into a neutral position and reviewed the rest of the abdomen just anteriorly. There appeared to be no lesions. There was no fluid and we allowed the abdomen to collapse, trocars were removed under direct vision and the additional 3 skin incisions were reapproximated with 4-0 Monocryl subcuticular sutures followed by Steri-Strips and sterile dressing. The patient tolerated the procedure well. [id number]/CPS #: [id number] MTDD
[2019-04-05] MEDS: ceFAZolin* 2 GM in NS 100 MLS Q8H (Pharmacy Admix) IVPB SCH (05:35)
[2019-04-05] MEDS: HYDROmorphone INJ* 0.5 MG/0.5 ML SYRINGE IV PRN (05:42)
[2019-04-05 06:36] LABS: Albumin 3.1 g/dL (3.2-5.2); CO2 Carbon Dioxide 21 mmol/L (22-32); Calcium 8.1 mg/dL (8.6-10.3); Chloride 105 mmol/L (101-111); Sodium 135 mmol/L (135-145)
[2019-04-05 06:42] LABS: ALT 14 U/L (7-52); Albumin/Globulin Ratio 1.6 (1-3); Alkaline Phosphatase 55 U/L (34-104); BUN/Creatinine Ratio 18.4 (8-20); Blood Urea Nitrogen 14 mg/dL (6-24); EGFR African American 124.2 (>60); EGFR Non-African American 102.6 (>60); Globulin 1.9 g/dL (2-4); Glucose 150 mg/dL (70-100)
[2019-04-05 06:48] LABS: Anion Gap 9 mmol/L (2-11)
[2019-04-05] MEDS: Pantoprazole IV* 40 MG IV SCH (08:20)
[2019-04-05] MEDS: DULoxetine DR CAP* 20 MG CAP.DR PO SCH (08:20)
[2019-04-05] MEDS: Multivitamins/Minerals TAB PO SCH (08:20)
[2019-04-05] MEDS: METHYLCELLULOSE PO SCH (08:21)
[2019-04-05] MEDS: [UNRECOGNIZED DRUG - OTHER] PO SCH (08:21)
[2019-04-05] MEDS: Insulin LISPRO* 1 UNITS UNIT SUBCUT SCH ×2 (08:21→12:39)
[2019-04-05] MEDS: metroNIDAZOLE IV 500 MG/100ML* 500 MG/100 ML BAG IVPB SCH (08:22)
--- NOTE | 2019-04-05 08:52 | PN ---
Progress Note - Progress Note Date of Service: 04/05/19 Note: S: Reports he is feeling well, sore in RUQ from procedure, passing gas, ambulating without issue, and denies fever, chills, nausea, emesis, SOB, chest pain. O: Vital Signs - 8 hr 04/05/19 04/05/19 04/05/19 02:25 05:42 07:15 Temperature 97.6 F 97.6 F Pulse Rate 65 83 Respiratory 16 20 15 Rate Blood Pressure 105/64 120/62 (mmHg) O2 Sat by Pulse 95 94 Oximetry 04/05/19 04/05/19 07:33 07:39 Temperature Pulse Rate Respiratory 16 16 Rate Blood Pressure (mmHg) O2 Sat by Pulse 94 Oximetry Intake and Output Last 24 Hours 04/03/19 04/04/19 04/05/19 04/06/19 06:59 06:59 06:59 06:59 Intake Total 2060 1680 2692 Output Total 550 100 Balance 1510 1680 2592 Intake: IV Fluids 1000 60 1678 LR 1500 NS (0.9%) 78 NS 100ML, Cefazolin 2G 100 IVPB 320 200 534 NS (0.9%) 334 Oral 740 1420 480 Output: CHICHO #1 100 Urine 550 Other: Estimated Void Medium Medium Large # Bowel Movements 0 0 Estimated Blood Loss 150 Comment # Voids 1 3 3 Laboratory Last Values WBC 9.2 10^3/uL (3.5-10.8) 04/03/19 06:14 RBC 3.95 10^6 /uL (4.18-5.48) L 04/03/19 06:14 Hgb 14.3 g/dL (14.0-18.0) 04/03/19 06:14 Hct 41 % (42-52) L 04/03/19 06:14 MCV 103 fL (80-94) H 04/03/19 06:14 MCH 36 pg (27-31) H 04/03/19 06:14 MCHC 35 g/dL (31-36) 04/03/19 06:14 RDW 13 % (10-15) 04/03/19 06:14 Plt Count 141 10^3/uL (150-450) L 04/03/19 06:14 MPV 7.2 fL (7.4-10.4) L 04/03/19 06:14 Neut % (Auto) 76.4 % 04/03/19 06:14 Lymph % (Auto) 11.5 % 04/03/19 06:14 [place] % (Auto) 11.4 % 04/03/19 06:14 Eos % (Auto) 0.6 % 04/03/19 06:14 Baso % (Auto) 0.1 % 04/03/19 06:14 Absolute Neuts (auto) 7.0 10^3/ul (1.5-7.7) 04/03/19 06:14 Absolute Lymphs (auto) 1.1 10^3/ul (1.0-4.8) 04/03/19 06:14 Absolute Monos (auto) 1.0 10^3/ul (0-0.8) H 04/03/19 06:14 Absolute Eos (auto) 0.1 10^3/ul (0-0.6) 04/03/19 06:14 Absolute Basos (auto) 0.0 10^3/ul (0-0.2) 04/03/19 06:14 Absolute Nucleated RBC 0.0 10^3/ul 04/03/19 06:14 Nucleated RBC % 0.0 04/03/19 06:14 INR (Anticoag Therapy) 1.33 (0.82-1.09) H 04/04/19 13:18 APTT 34.2 seconds (26.0-38.0) 04/04/19 13:18 Sodium 135 mmol/L (135-145) 04/05/19 05:42 Potassium TNP 04/05/19 05:42 Chloride 105 mmol/L (101-111) 04/05/19 05:42 Carbon Dioxide 21 mmol/L (22-32) L 04/05/19 05:42 Anion Gap 9 mmol/L (2-11) 04/05/19 05:42 BUN 14 mg/dL (6-24) 04/05/19 05:42 Creatinine 0.76 mg/dL (0.67-1.17) 04/05/19 05:42 Est GFR ( Amer) 124.2 (>60) 04/05/19 05:42 Est GFR (Non-Af Amer) 102.6 (>60) 04/05/19 05:42 BUN/Creatinine Ratio 18.4 (8-20) 04/05/19 05:42 Glucose 150 mg/dL (70-100) H 04/05/19 05:42 POC Glucose (mg/dL) 155 mg/dL (70-100) H 04/05/19 07:30 Lactic Acid 2.0 mmol/L (0.5-2.0) 04/01/19 21:41 Calcium 8.1 mg/dL (8.6-10.3) L 04/05/19 05:42 Total Bilirubin 0.60 mg/dL (0.2-1.0) 04/05/19 05:42 Direct Bilirubin 0.30 mg/dL (0.03-0.18) H 04/03/19 05:42 Indirect Bilirubin 1.5 mg/dL (0.3-1.0) H 04/03/19 05:42 AST TNP 04/05/19 05:42 ALT 14 U/L (7-52) 04/05/19 05:42 Alkaline Phosphatase 55 U/L (34-104) 04/05/19 05:42 Troponin I 0.00 ng/mL (<0.03) 04/01/19 20:55 Total Protein 5.0 g/dL (6.4-8.9) L 04/05/19 05:42 Albumin 3.1 g/dL (3.2-5.2) L 04/05/19 05:42 Globulin 1.9 g/dL (2-4) L 04/05/19 05:42 Albumin/Globulin Ratio 1.6 (1-3) 04/05/19 05:42 Lipase 17 U/L (11.0-82.0) 04/01/19 15:31 Urine Color Yellow 04/03/19 03:40 Urine Appearance Clear 04/03/19 03:40 Urine pH 5.0 (5-9) 04/03/19 03:40 Ur Specific [place] 1.023 (1.010-1.030) 04/03/19 03:40 Urine Protein Negative (Negative) 04/03/19 03:40 Urine Ketones 1+ (Negative) A 04/03/19 03:40 Urine Blood Negative (Negative) 04/03/19 03:40 Urine Nitrate Negative (Negative) 04/03/19 03:40 Urine Bilirubin Negative (Negative) 04/03/19 03:40 Urine Urobilinogen Negative (Negative) 04/03/19 03:40 Ur Leukocyte Esterase Negative (Negative) 04/03/19 03:40 Urine Glucose Negative (Negative) 04/03/19 03:40 Urine Ascorbic Acid * (Negative) A 04/03/19 03:40 PEX General: Alert, in NAD or discomfort. Integumentary: No rashes or jaundice. HEENT: Oropharynx clear. PERRLA. Heart: RRR. Lungs: CTAB. ABD: BS present. Soft, nondistended. Tender in RUQ. Incisions C/D/I. CHICHO dressing with SS output. Extremities: Calves soft and nontender. Distal pulses intact bilaterally. No edema. Assessment and plan: 68 yo M S/P laparoscopic cholecystectomy POD#1. He is recovering appropriately and is able to be discharged from a surgical standpoint. He will follow up in our office for removal of CHICHO drain. Will not need to take antibiotics after discharge. May resume his Xarelto tonight. Plan discussed with Dr. Rosales.
--- NOTE | 2019-04-05 09:48 | DS ---
Admitted: 04/01/2019 Discharged: 04/05/2019 Admission diagnosis: Sepsis secondary to possible cholecystitis Discharge diagnosis: Cholecystitis Condition at discharge: Stable PEX General: Alert, in NAD or discomfort. Integumentary: No rashes, jaundice, petechia. HEENT: PERRLA. Oropharynx clear. Neck: Trachea midline. Heart: RRR. No MRG. Lungs: CTAB, no WRR. ABD: BS present. Soft, nondistended. Mild tenderness in RUQ. Incisions C/D/I. CHICHO drain with SS output. No guarding or rebound tenderness. Extremities: Calves soft and nontender. Distal pulses intact bilaterally. No edema. Procedure performed: Laparoscopic cholecystectomy Labs: Significant for elevated WBCs that trended downwards over stay. Hospital course: Presented to ED with epigastric pain and nausea. Labs were significant for an elevated WBC count. CT scan suggested acute cholecystitis. He was admitted to medicine service and was taken of [facility] for anticipation of possible surgery. He was started on antibiotics. On second day of admission, his WBCs were WNL and surgery was consulted and scheduled laparoscopic cholecystectomy the following Thursday during regular operating times. HIDA scan on 04/02 demonstrated delayed filling of the gallbladder at 3 hours consistent with possible acute or chronic calculous cholecystitis. On 3rd day of admission , he was feeling a little better, most likely due to administration of antibiotics. He was tolerating PO, WBCs WNL, no fever, mild elevation of T BILI. On 03/04/2019 he was taken for a laparoscopic cholecystectomy. Procedure was tolerated well and he was transferred with CHICHO drain back to the 4th floor to the service of medicine. Started on low fat diet. On POD#1, he was tolerating PO intake well, ambulating without issue, passing flatus, feeling only mild RUQ pain from procedure. His dressings were C/D/I, CHICHO drain with SS output, vitals stable. Denied nausea, emesis, fever, chills, chest pain, SOB. Instructions were given to the patient regarding diet, medications, activity, and follow up. Instructed on proper care for incisions and drain, which will be removed as an outpatient this week. Advised to call or go to ER significant pain , fever, or light headedness were to develop. All questions were answered. Discharged home in stable condition on 04/05/2019.
[2019-04-05 11:02] VITALS: BP 107/61
== END 2019-04-05 14:05 | disposition home or self-care (01) | DRG 710 ==
LOC: ED 14:22 → MED 21:08 → OBSVTOIN 04-02 18:46
PROVIDERS: ADMIT Nurse Practitioner Adult Health; ATTEND Surgery
PROC: 0FT44ZZ Resection of Gallbladder, Percutaneous Endoscopic Approach (ICD-10-PCS; principal; 2019-04-04 12:00)
DX: A41.9 Sepsis, unspecified organism (principal); K80.00 Calculus of gallbladder with acute cholecystitis without obstruction; R17 Unspecified jaundice; K82.A1 Gangrene of gallbladder in cholecystitis; E11.42 Type 2 diabetes mellitus with diabetic polyneuropathy; I10 Essential (primary) hypertension; K21.9 Gastro-esophageal reflux disease without esophagitis; H81.09 Meniere's disease, unspecified ear; N40.0 Benign prostatic hyperplasia without lower urinary tract symptoms; R00.0 Tachycardia, unspecified; R06.82 Tachypnea, not elsewhere classified; E78.5 Hyperlipidemia, unspecified; M25.512 Pain in left shoulder; M77.9 Enthesopathy, unspecified; K44.9 Diaphragmatic hernia without obstruction or gangrene; G43.909 Migraine, unspecified, not intractable, without status migrainosus; Z92.21 Personal history of antineoplastic chemotherapy; Z86.711 Personal history of pulmonary embolism; Z87.442 Personal history of urinary calculi; Z85.038 Personal history of other malignant neoplasm of large intestine; Z92.3 Personal history of irradiation; Z79.899 Other long term (current) drug therapy; Z88.0 Allergy status to penicillin; Z87.891 Personal history of nicotine dependence; Z79.01 Long term (current) use of anticoagulants
CPT/HCPCS: 36415; 71046; 74177; 76705; 78226; 80048; 80053; 80076; 81003; 82247; 82248; 83605; 83690; 84484; 85025; 85610; 85730; 87040; 88304; 93005; 96374; 96375; 99283; A9270-GY; A9537; J0690; J1100; J1170; J1644; J1885; J2250; J2270; J2405; J2704; J3010; Q9967

== ENCOUNTER 2021-04-24 05:32 | Observation (INO) ==
[~2021-04-24 05:32] MED LIST changes: -Acetaminophen IV 1GM/100ML * 100 ML ONE; -Buffered Lidocaine 1% SYRIN* 1 ML/SYRINGE INTRADERM ONE; -Dexamethasone IV* 4 MG/ML 1 ML (4 MG) ONE; -Dexmedetomidine* 200 MCG/2 ML 2 ML VIAL ONE; +DiMENhydriNATE IV 50 mg/ml 1 ml VIAL IV PUSH PRN; -DiMENhydriNATE IV* 50 MG/ML VIAL IV PUSH PRN; -EPHEDrine (Pressors)* 50 MG/ML VIAL ONE; -EPINEPHrine SYR 0.1MG/ML* SYRINGE ONE; -Ketorolac INJ* 30 MG/ML 1 ML VIAL ONE; -Lactated Ringers 1000 ML Bag* 1,000 ML IV SCH; -Lidocaine 2% PF * 5 ML VIAL ONE; -Metoclopramide IV* 5 MG/ML 2 ML VIAL ONE; -Midazolam* 1 MG/ML 2 ML VIAL (2 MG) ONE; +Naloxone 0.4 mg VIAL 0.4 mg/ml 1 ml VIAL IV PRN; -Naloxone* 0.4 MG/ML 1 ML VIAL IV PRN; +Ondansetron 4 mg VIAL 2 MG/ML 2 ml VIAL IV PRN; -Ondansetron INJ* 2 MG/ML VIAL ONE; -Propofol* 10 MG/ML 20 ML BTL ONE; -ROPIVACAINE 5 MG/ML 30 ML BTL (0.5%) ONE; -Rocuronium* 10 MG/ML VIAL ONE; -Sugammadex * 200 MG/2 ML VIAL IV PUSH ONE; -ceFAZolin 2 GM PREMIX in ORs 2 GM/50 ML BAG ONE; +diPHENhydraMINE IV 50 MG/ML 1 ml VIAL (BENADRYL) IV PRN; +fentaNYL 100 mcg/2 ml 50 MCG/ML VIAL IV PRN; -fentaNYL* 50 MCG/ML 2 ML VIAL (100 MCG VIAL) IV PRN; -fentaNYL* 50 MCG/ML 2 ML VIAL (100 MCG VIAL) ONE; -oxyCODONE TAB* 5 MG TAB PO PRN
[2021-04-24] MEDS ORDERED: Buffered Lidocaine 1% SYRIN 1 ml INTRADERM ONE (06:00)
[2021-04-24] MEDS ORDERED: Vancomycin 1,500 MG in NS 0.9% 250 ml 250 ML IVPB ONE (06:00)
[2021-04-24] MEDS ORDERED: Lactated Ringers 1000 ml BAG 1,000 ML IV SCH (06:00)
[2021-04-24] MEDS ORDERED: Propofol 10 MG/ML 20 ML BTL ONE ×3 (06:43→10:17)
[2021-04-24] MEDS ORDERED: Rocuronium 50 mg VIAL 10 mg/ml 5 ml VIAL (50 mg) ONE ×2 (06:43→10:32)
[2021-04-24] MEDS ORDERED: Lidocaine 2% PF 5 ML VIAL ONE (06:43)
[2021-04-24] MEDS ORDERED: Midazolam 2 mg/2 ml VIAL 1 mg/ml 2 ml VIAL (2 mg) ONE (06:43)
[2021-04-24] MEDS ORDERED: fentaNYL 250 mcg/5 ml 50 MCG/ML 5 ml VIAL (250 MCG) ONE (06:43)
[2021-04-24] MEDS ORDERED: ceFAZolin VIAL VIAL ONE (07:03)
[2021-04-24] MEDS ORDERED: Bupivacaine 0.5% SDV PF 30ML VIAL ONE (07:03)
[2021-04-24] MEDS ORDERED: BUPIVACAINE **LIPOSOME/PF 13.3 MG/ML (266MG/ 20ML) VIAL (RESTRICTED) INFIL ONE (08:00)
[2021-04-24] MEDS ORDERED: Dexamethasone IV 4 MG/ML VIAL 1 ml VIAL ONE (09:00)
[2021-04-24] MEDS ORDERED: HYDROmorphone 0.5 MG/0.5 ML SYRINGE ONE (09:15)
[2021-04-24] MEDS ORDERED: EPHEDrine (Pressors) 50 MG/ML VIAL ONE (09:26)
[2021-04-24] MEDS ORDERED: Acetaminophen IV 1 GM/100ML 100 ML IV ONE (09:30)
[2021-04-24] MEDS ORDERED: Ondansetron 4 mg VIAL 2 MG/ML 2 ml VIAL ONE (11:14)
[2021-04-24] MEDS ORDERED: Ondansetron 4 mg VIAL 2 MG/ML 2 ml VIAL IV PRN (12:06)
[2021-04-24] MEDS ORDERED: HYDROcodone/ACETAMIN 5/325 mg TAB PO PRN (12:06)
[2021-04-24] MEDS ORDERED: Eye Irrigation Solution 30 ML BOTTLE BOTH EYES STA (12:49)
[2021-04-24] MEDS: HYDROcodone/ACETAMIN 5/325 mg TAB PO PRN ×2 (15:46→22:08)
[2021-04-24] MEDS ORDERED: Dextran 70/Hypromellose Tears Eye Drops 15 ml BTL (for Artificials Tears) BOTH EYES PRN (18:00)
[2021-04-24] MEDS: DULoxetine DR 20 mg CAP PO SCH (20:15)
[2021-04-25] MEDS: Multivitamins/Minerals TAB PO SCH (07:33)
[2021-04-25] MEDS: DULoxetine DR 20 mg CAP PO SCH ×2 (07:33→21:12)
[2021-04-25] MEDS: HYDROcodone/ACETAMIN 5/325 mg TAB PO PRN ×3 (07:33→21:13)
[2021-04-25] MEDS ORDERED: CMCS: Lovastatin 10 mg TAB (NF) PO SCH (17:30)
[2021-04-26] MEDS: HYDROcodone/ACETAMIN 5/325 mg TAB PO PRN ×3 (00:50→10:04)
[2021-04-26] MEDS ORDERED: Heparin 5000 UNITS/ML 1 mL VIAL SUBCUT SCH (06:00)
[2021-04-26 07:45] VITALS: BP 119/76
[2021-04-26] MEDS: Multivitamins/Minerals TAB PO SCH (07:56)
[2021-04-26] MEDS: DULoxetine DR 20 mg CAP PO SCH (07:56)
== END 2021-04-26 12:52 | disposition home or self-care (01) ==
LOC: OR 05:32 → SSU 05:32
PROVIDERS: ADMIT Neurological Surgery; ATTEND Neurological Surgery